=== PATIENT | female | born 1950 | race Caucasian/White ===

== ENCOUNTER → 2017-01-28 | Outpatient (CLI) | payer MEDICARE, OTHER ==
--- NOTE | 2017-01-28 08:31 | CT ---
EXAMINATION TYPE: CT abdomen pelvis w con DATE OF EXAM: 01/28/2017 7:44 AM HISTORY: low WBC, epigastric pain and bloating CT DLP: 1057.4mGycm Automated Exposure Control for Dose Reduction was Utilized. CONTRAST: CT scan of the abdomen and pelvis is performed with IV Contrast, patient injected with 100 mL of Omni paque 300. COMPARISON: None. FINDINGS: LUNG BASES: No significant abnormality is appreciated. LIVER/GB: No significant abnormality is appreciated. PANCREAS: No significant abnormality is seen. SPLEEN: There is trace perisplenic fluid or ascites noted along superior and left lateral margin. Spl een size is upper limits of normal measuring 12.6 cm on long axis on axial image 18. ADRENALS: No significant abnormality is seen. KIDNEYS: No significant abnormality is seen. BOWEL: The oral contrast reaches level of rectum. There is no suspicious small or large bowel dilatat ion. Some diverticula are seen in the sigmoid colon. There is mild to moderate diffuse wall thickenin g at this level identified. No significant surrounding inflammatory changes seen. UTERUS/ADNEXA: Uterus is surgically absent or markedly atrophic in appearance. Remnant right ovary is seen near axial image 66. Remnant left ovary is less well visualized. Some scattered pelvic phleboli ths are seen. LYMPH NODES: No greater than 1cm abdominal or pelvic lymph nodes are appreciated. OSSEOUS STRUCTURES: There is levoconvex scoliosis centered in the mid lumbar spine. There is multilev el disc space narrowing and vacuum disc phenomenon with relative sparing of L4-L5 level. There is fac et arthropathy lower lumbar levels. There is mild to moderate multilevel anterior and lateral spurrin g. OTHER: No significant additional abnormality is seen. IMPRESSION: 1. Perhaps a mild colitis involving the sigmoid colon with some diverticula present. Clinical correla tion advised, consider infectious or inflammatory etiologies. No bowel obstruction is noted. 2. Spleen is upper limits of normal in size to mildly enlarged with trace perisplenic ascites present .
== END ==
LOC: RADCTMAIN 07:13
PROVIDERS: ATTEND Family Medicine
DX: R18.8 Other ascites (principal); R16.1 Splenomegaly, not elsewhere classified
CPT/HCPCS: 74177; Q9967

== ENCOUNTER 2017-02-16 10:59 | Day surgery (SDC) | payer MEDICARE, OTHER ==
[2017-02-12 16:08] VITALS: BMI 28.4
[~2017-02-16 10:59] MED LIST: LACTATED RINGERS 1,000 ML IV SCH
[2017-02-16 11:11] VITALS: RESP 16; TEMP 97.7
[2017-02-16] MEDS ORDERED: LIDOCAINE 1% 20 ML VIAL (10MG/ML) FOR IV START INTRADERMA ONE (11:26)
[2017-02-16] MEDS ORDERED: PROPOFOL 10 MG/ML 20 ML VIAL IV ONE (11:50)
--- NOTE | 2017-02-16 12:30 | P.PCN ---
Date of Procedure: 02/16/17 Procedure(s) Performed: Procedure: Colonoscopy and biopsy. Preoperative diagnosis: Change in bowel habits and abnormal CT of the abdomen. Postoperative diagnosis: 1. Sigmoid diverticulosis. 2. Fwe isolated ulcerations in the sigmoid, possibly representing resolving colitis. 3. Exam of the colon and terminal ileum is, otherwise, normal. Preparation: HalfLytely prep. Sedation: Was provided by anesthesia. Brief clinical history: The patient is a 67-year-old female who is referred for this evaluation because of recent onset of change in bowel habits. Her baseline is one bowel movement every several days. She has recent change to soft and at times diarrheic movements. CT of the abdomen done in January 28 showed possible mild colitis and sigmoid diverticula and small amount of ascites around the spleen. Because of her persistent symptoms she is referred for this evaluation. Procedure: With the patient on her left lateral decubitus position and after informed consent and adequate sedation, the perianal area was inspected and it did not show any fissures or fistulas. There were no masses felt on digital rectal examination. The Olympus CFQ 160L video colonoscope was then inserted in the rectum in the usual fashion and advanced to the cecum. I intubated the ileocecal valve and examined the terminal ileum. Terminal ileum appeared healthy. The colon showed few diverticular orifices scattered in the sigmoid and there were few isolated healing ulcerations in the sigmoid, raising the possibility of nonspecific resolving colitis or infectious colitis. I obtained biopsies from the terminal ileum and randomly from the colon as well as a biopsy from one of the ulcerations in the sigmoid and I took a picture of that ulcer then the endoscope was withdrawn. The patient tolerated the procedure well. Plan: The patient was reassured. Will await biopsy results. She will follow- up with you as planned and further plans can be made based on her course.
[2017-02-16 12:56] VITALS: BP 125/71; PULSE 74
== END 2017-02-16 13:10 | disposition home or self-care (01) ==
LOC: ORWHC2ENDO 10:59
DX: K51.50 Left sided colitis without complications (principal); K57.30 Diverticulosis of large intestine without perforation or abscess without bleeding; Z90.710 Acquired absence of both cervix and uterus; Z88.0 Allergy status to penicillin; Z79.2 Long term (current) use of antibiotics; Z79.1 Long term (current) use of non-steroidal anti-inflammatories (NSAID)
CPT/HCPCS: 88305; 45380; J2704

== ENCOUNTER 2017-02-23 09:46 | Inpatient (IN) | payer MEDICARE, OTHER ==
[2017-02-23] MEDS ORDERED: SODIUM CHLORIDE 0.9% 500 ML IV STA (10:27)
[2017-02-23] MEDS ORDERED: ONDANSETRON 4 MG/2 ML VIAL IVP STA (10:27)
[2017-02-23] MEDS ORDERED: SODIUM CHLORIDE 0.9% 1,000 ML IV STA ×2 (10:27)
[2017-02-23] MEDS ORDERED: DICYCLOMINE 10 MG/ML 2 ML AMP IM STA (10:28)
--- NOTE | 2017-02-23 10:29 | ED ---
General Adult HPI - General Chief complaint: GI Bleed Stated complaint: blood in stool Time Seen by Provider: 02/23/17 10:27 Source: patient, family, RN notes reviewed, old records reviewed Mode of arrival: ambulatory - History of Present Illness Initial comments: This is a 67-year-old female ER for evaluation. Patient's is here today for evaluation of possible GI bleed, diarrhea, patient has had recent colonoscopy which did show diverticulosis diverticulitis colitis. Patient doing with outpatient diarrhea for a few days now. 2 weeks now. Is been on multiple different antibiotics. Patient's symptoms are showing blood in stool at this time. Mild weakness. No fevers - Related Data Home Medications Medication Instructions Recorded Confirmed L.acidoph,Paracasei, B.lactis 1 cap PO DAILY 02/12/17 02/23/17 [Probiotic] Naproxen Sodium [Aleve] 220 - 440 mg PO DAILY PRN 02/12/17 02/23/17 Allergies Allergy/AdvReac Type Severity Reaction Status Date / Time amoxicillin Allergy Rash/Hives Verified 02/23/17 10:47 Penicillins Allergy Unknown Verified 02/23/17 10:47 Review of Systems ROS Statement: Those systems with pertinent positive or pertinent negative responses have been documented in the HPI. ROS Other: All systems not noted in ROS Statement are negative. Past Medical History Additional Past Medical History / Comment(s): hx heart murmur, pt states was told bowels inflamed and fluid around gallbladder History of Any Multi-Drug Resistant Organisms: None Reported Past Surgical History: Hysterectomy, Orthopedic Surgery Additional Past Surgical History / Comment(s): rotator cuff rt x2, COLONOSCOPY FEB 16 2017 Past Anesthesia/Blood Transfusion Reactions: No Reported Reaction Past Psychological History: No Psychological Hx Reported Smoking Status: Former smoker Past Alcohol Use History: None Reported Additional Past Alcohol Use History / Comment(s): quit 30 years ago- states smoked off and on Past Drug Use History: None Reported - Past Family History Father Family Medical History: Cancer Additional Family Medical History / Comment(s): bladder Mother Family Medical History: Cancer General Exam General appearance: alert, in no apparent distress Head exam: Present: atraumatic, normocephalic, normal inspection Eye exam: Present: normal appearance, PERRL, EOMI. Absent: scleral icterus, conjunctival injection, periorbital swelling ENT exam: Present: normal exam, mucous membranes moist Neck exam: Present: normal inspection. Absent: tenderness, meningismus, lymphadenopathy Respiratory exam: Present: normal lung sounds bilaterally. Absent: respiratory distress, wheezes, rales, rhonchi, stridor Cardiovascular Exam: Present: regular rate, normal rhythm, normal heart sounds. Absent: systolic murmur, diastolic murmur, rubs, gallop, clicks GI/Abdominal exam: Present: soft, normal bowel sounds. Absent: distended, tenderness, guarding, rebound, rigid Extremities exam: Present: normal inspection, full ROM, normal capillary refill. Absent: tenderness, pedal edema, joint swelling, calf tenderness Back exam: Present: normal inspection Neurological exam: Present: alert, oriented X3, CN II-XII intact Psychiatric exam: Present: normal affect, normal mood Skin exam: Present: warm, dry, intact, normal color. Absent: rash Course Vital Signs 02/23/17 09:51 Temperature 98.3 F Pulse Rate 72 Respiratory 18 Rate Blood Pressure 123/62 O2 Sat by Pulse 96 Oximetry - Reevaluation(s) Reevaluation #1: 02/23/17 11:22 Prior colonoscopy results reviewed, patient still feeling weak EKG Findings - EKG Comments: EKG Findings:: EKG shows sinus rhythm rate of 75, NC 154, QRS 84, QTC 486 Medical Decision Making - Medical Decision Making 67 female year for. Patient treatment of colitis. Continue continuously persistent diarrhea. Patient will be admitted for continual GI evaluation and symptom control - Lab Data Result diagrams: 02/23/17 11:00 Lab Results 02/23/17 Range/Units 11:00 WBC 4.4 (3.8-10.6) k/uL RBC 4.49 (3.80-5.40) m/uL Hgb 13.7 (11.4-16.0) gm/dL Hct 41.0 (34.0-46.0) % MCV 91.3 (80.0-100.0) fL MCH 30.6 (25.0-35.0) pg MCHC 33.5 (31.0-37.0) g/dL RDW 14.3 (11.5-15.5) % Plt Count 120 L (150-450) k/uL Neutrophils % 65 % Lymphocytes % 19 % Monocytes % 8 % Eosinophils % 4 % Basophils % 1 % Neutrophils # 2.8 (1.3-7.7) k/uL Lymphocytes # 0.9 L (1.0-4.8) k/uL Monocytes # 0.3 (0-1.0) k/uL Eosinophils # 0.2 (0-0.7) k/uL Basophils # 0.0 (0-0.2) k/uL Disposition Clinical Impression: Gastrointestinal hemorrhage, Colitis, Diarrhea, Failure of outpatient treatment Disposition: ADMITTED IP TO THIS HOSP Condition: Fair
[2017-02-23] MEDS ORDERED: SODIUM CHLORIDE 0.9% 1,000 ML IV ONE (11:06)
[2017-02-23] MEDS ORDERED: ONDANSETRON 4 MG/2 ML VIAL IVP PRN (11:07)
[2017-02-23] MEDS ORDERED: MORPHINE SULFATE 4 MG/ML SYRINGE IVP PRN (11:07)
[2017-02-23 11:11] LABS: Basophils % (A) 1 %; CH 30.9; CHCM 34.1; Eosinophils # (A) 0.2 k/uL (0-0.7); Eosinophils % (A) 4 %; HDW 2.77; HGB 13.7 gm/dL (11.4-16.0); Luc # (Auto) 0.16; Luc % (Auto) 4; Lymphocytes # (A) 0.9 k/uL (1.0-4.8); Lymphocytes % (A) 19 %; MCH 30.6 pg (25.0-35.0); MCHC 33.5 g/dL (31.0-37.0); MCV 91.3 fL (80.0-100.0); Mean Platelet Volume 8.7; Monocytes # (A) 0.3 k/uL (0-1.0); Monocytes % (A) 8 %; Neutrophils # (A) 2.8 k/uL (1.3-7.7); Neutrophils % (A) 65 %; RBC 4.49 m/uL (3.80-5.40); RDW 14.3 % (11.5-15.5); WBC 4.4 k/uL (3.8-10.6); WBC (Perox) 4.49
[2017-02-23 11:26] LABS: ALT 34 U/L (9-52); AST 22 U/L (14-36); Alkaline Phosphatase 69 U/L (38-126); Anion Gap 9 mmol/L; Blood Urea Nitrogen 9 mg/dL (7-17); Carbon Dioxide 23 mmol/L (22-30); Chloride 110 mmol/L (98-107); Glucose 94 mg/dL (74-99); Magnesium 1.8 mg/dL (1.6-2.3); Non-African American GFR(MDRD) >60 (>60 ml/min/1.73 sqM); Phosphorous 3.6 mg/dL (2.5-4.5); Potassium 4.1 mmol/L (3.5-5.1); Sodium 142 mmol/L (137-145); Total Bilirubin 0.6 mg/dL (0.2-1.3); Total Protein 6.5 g/dL (6.3-8.2)
[2017-02-23 11:27] LABS: Prothrombin Time 9.8 sec (9.0-12.0)
[2017-02-23 11:36] LABS: Creatine Kinase 208 U/L (30-135)
[2017-02-23 11:47] LABS: Troponin I <0.012 ng/mL (0.000-0.034)
[2017-02-23 11:50] LABS: Creatine Kinase MB 5.9 ng/mL (0.0-2.4); Partial Thromboplastin Time 21.8 sec (22.0-30.0)
[2017-02-23] MEDS ORDERED: HYDROcodone/APAP 5-325MG 1 EACH TAB PO PRN (17:31)
[2017-02-23] MEDS ORDERED: TEMAZEPAM 15 MG CAP PO PRN (17:31)
[2017-02-23] MEDS ORDERED: HYDROmorphone 1 MG/ML 1 ML SYRINGE IVP PRN (17:31)
[2017-02-23] MEDS ORDERED: ALPRAZolam 0.25 MG TAB PO PRN (17:31)
[2017-02-23] MEDS ORDERED: LORazepam 0.5 MG TAB PO PRN (17:37)
[2017-02-23] MEDS: VANCOMYCIN ORAL SOLUTION 250 MG/5 ML BOTTLE PO SCH (18:27)
[2017-02-23] MEDS: CHERRY FLAVOR 60 ML BOTTLE PO PRN (18:27)
[2017-02-23 18:32] LABS: Appearance,Urine Clear (Clear); Bilirubin,Urine Negative (Negative); Glucose,Urine (UA) Negative (Negative); Ketones,Urine Negative (Negative); Leukocyte Esterase,Urine Negative (Negative); Nitrite,Urine Negative (Negative); PH, Urine 5.5 (5.0-8.0); Protein,Urine Negative (Negative); Specific Gravity,Urine 1.002 (1.001-1.035); UA Billing (MACRO vs. MICRO) CHEM; Urobilinogen,Urine <2.0 mg/dL (<2.0)
[2017-02-23] MEDS: LACTOBACILLUS ACIDOPH & BULGAR 1 EACH PACKET PO SCH (20:22)
[2017-02-23 23:28] VITALS: TEMP 97.4
[2017-02-24] MEDS: VANCOMYCIN ORAL SOLUTION 250 MG/5 ML BOTTLE PO SCH ×3 (00:05→11:04)
[2017-02-24] MEDS: CHERRY FLAVOR 60 ML BOTTLE PO PRN ×3 (00:05→11:04)
[2017-02-24] MEDS: LACTOBACILLUS ACIDOPH & BULGAR 1 EACH PACKET PO SCH (07:26)
[2017-02-24 07:48] VITALS: BP 107/61; PULSE 79; RESP 16
[2017-02-24] MEDS ORDERED: PANTOPRAZOLE 40 MG/10 ML VIAL IVP SCH (09:00)
[2017-02-24] MEDS ORDERED: ENOXAPARIN 40 MG/0.4 ML SYRINGE SQ SCH (09:00)
--- NOTE | 2017-02-24 09:13 | HP ---
DATE OF ADMISSION: CHIEF COMPLAINT: Abdominal pain, diarrhea. HISTORY OF PRESENT ILLNESS: This 67-year-old woman with a past history of gastroesophageal reflux disease, history of degenerative joint disease, history of orthopedic surgeries, history of colitis, history of diverticular disease, being followed by Dr. Eaton in the outpatient setting, not feeling well in the last few weeks. Initially the patient had multiple episodes of respiratory infection. Patient received antibiotics. Subsequently patient also had loose stools which turned into diarrhea and abdominal pain. The patient also had a colonoscopy done recently by Dr. Willis and the colonoscopy showed sigmoid diverticulosis, isolated ulceration to sigmoid indicating ulcerative colitis and as well as colitis and a CT scan of the abdomen and pelvis also done which showed mild colitis involving sigmoid colitis. Patient complaining of lower abdominal pain. The patient also had multiple episodes of diarrhea last night. Patient came to [facility] and admitted for evaluation and treatment. Clostridium difficile found to be positive. There is no history of fever, rigors. No history of headache, loss of consciousness, seizures. PAST MEDICAL HISTORY: History of hysterectomy, history of degenerative joint disease, orthopedic surgeries, history of heart murmur, colitis, diverticulitis, history of gastroesophageal reflux disease. Home medications are: 1. Naprosyn 220 and 240 mg daily p.r.n. 2. Probiotic 1 p.o. daily. ALLERGIES: AMOXICILLIN, PENICILLIN. FAMILY HISTORY: History of bladder cancers. SOCIAL HISTORY: Previous history of smoking. Occasional alcohol intake. Patient works at [employer]. REVIEW OF SYSTEMS: ENT: No diminishing hearing or diminished vision. CARDIOVASCULAR: No angina or palpitations. RESPIRATORY: No cough or hemoptysis. GI: As mentioned earlier. : No dysuria. NERVOUS SYSTEM: No numbness or weakness. ALLERGY/IMMUNOLOGY: No asthma or hayfever. MUSCULOSKELETAL: As mentioned earlier. HEMATOLOGY: No history of anemia. ENDOCRINE: No history of diabetes or hypothyroidism. CONSTITUTIONAL: As mentioned earlier. DERMATOLOGY: Negative. RHEUMATOLOGY: Negative. PSYCHIATRY: As mentioned earlier. PHYSICAL EXAMINATION: Patient is alert and oriented x3. Pulse 76, blood pressure 125/80, respirations 20, temperature 98.2, pulse ox 94% on room air. HEENT: Conjunctivae normal. NECK: No jugular venous distention. CARDIOVASCULAR: S1 and S2, muffled. RESPIRATORY: Breath sounds diminished at the bases. No rhonchi, no crackles. ABDOMEN: Soft, mild diffuse tenderness present. No guarding, no rigidity. No mass palpable. LEGS: No edema, no swelling. NERVOUS SYSTEM: Higher function as mentioned. Moves all four limbs. No focal motor deficits. LYMPHATIC: No lymphadenopathy in the neck, axillae or groin. SKIN: No ulcer, rash or bleeding. LABS: WBC 4.5, hemoglobin 13.7, platelets 120 and APTT 21.8, chloride is 110, CK-MB is 5.9. Creatinine is 208. Clostridium difficile is positive. ASSESSMENT: 1. Acute colitis with Clostridium difficile colitis with severe abdominal pain and failure of outpatient treatment. 2. History of recent colonoscopy showing colonic ulcerations. 3. Thrombocytopenia of undetermined etiology. 4. Increased random blood sugar. 5. History of respiratory infection. 6. History of gastroesophageal reflux disease. 7. History of for diverticular disease. 8. History of remote history nicotine dependence. 9. History of degenerative joint disease. RECOMMENDATIONS AND DISCUSSION: In this 67-year woman who presented with multiple complex medical issues, we will monitor the patient closely. Continue the current medications and symptomatic treatment. Will initiate vancomycin and start clear liquids, lactose free and will also order Lactinex. Continue to monitor. Otherwise gastroenterology Dr. Willis will be consulted. The pathological biopsy report of the ileum showed no changes. The sigmoid colon biopsy showed nonspecific acute colitis and features consistent with an ulcer. See orders for further details. Guarded prognosis. Further recommendations to follow.
[2017-02-24 09:58] LABS: Basophils % (A) 0 %; CH 30.5; CHCM 33.1; Eosinophils # (A) 0.2 k/uL (0-0.7); Eosinophils % (A) 6 %; HCT 37.3 % (34.0-46.0); HDW 2.84; HGB 12.2 gm/dL (11.4-16.0); Luc # (Auto) 0.12; Luc % (Auto) 4; Lymphocytes # (A) 0.8 k/uL (1.0-4.8); Lymphocytes % (A) 26 %; MCH 30.3 pg (25.0-35.0); MCHC 32.8 g/dL (31.0-37.0); MCV 92.5 fL (80.0-100.0); Mean Platelet Volume 8.6; Monocytes # (A) 0.3 k/uL (0-1.0); Monocytes % (A) 10 %; Neutrophils # (A) 1.7 k/uL (1.3-7.7); Neutrophils % (A) 54 %; RBC 4.04 m/uL (3.80-5.40); RDW 14.2 % (11.5-15.5); WBC 3.2 k/uL (3.8-10.6); WBC (Perox) 3.53
--- NOTE | 2017-02-24 10:07 | P.CONS ---
History of Present Illness - Reason for Consult Consult date: 02/24/17 Colitis Requesting physician: Temi Cordoba - History of Present Illness 67-year-old female PMH GERD, diverticulosis presents with rectal bleeding. She underwent colonoscopy for evaluation of change in bowel habits and diarrhea on 02/16/2017 with findings of sigmoid diverticulosis and a few isolated ulcerations in the sigmoid possibly representing resolving colitis. Pathology reported no histologic changes in the terminal ileum. Sigmoid colon biopsy nonspecific acute colitis with features consistent with ulcer. Patient was receiving outpatient antibiotic therapy prior to colonoscopy for abdominal discomfort and diarrhea. Presented to the hospital with reports of lower abdominal discomfort and persistent diarrhea over the weekend turning blood- tinged on Thursday. Patient felt dehydrated. Clostridium difficile toxin positive. Receiving oral vancomycin. Presently feels better. No diarrhea 18 hours. White count 4.4. Hemoglobin 13.7. INR 1.0. BUN 9 creatinine 0.7. Afebrile. Review of Systems Constitutional: Denies fever, chills, sweats, weight gain, or loss. HEENT: Negative for migraines, blurred vision or loss, earaches, drainage, tinnitus, oral mucosal lesions, dysphagia, or odynophagia. CARDIAC: Negative for chest pain, arrhythmias, or palpitation. RESPIRATORY: Negative for shortness of breath, hemoptysis, cough, or sputum production. GI: See HPI for pertinent findings. : Negative for hematuria, urgency, frequency, polyuria, or dysuria. GYNc: Denies possibility of . Negative vaginal discharge. MUSCULOSKELETAL: Negative for muscle aches, swelling, arthritis, and arthralgias. NEUROLOGIC: Negative for stroke or TIA. ENDOCRINE: Negative for thyroid problems. SKIN: Negative for rash or itching. PSYCHIATRIC: Negative history for depression and anxiety All systems: negative (See HPI) Past Medical History Past Medical History: GERD/Reflux Additional Past Medical History / Comment(s): hx heart murmur,colitis, diverticular dx. History of Any Multi-Drug Resistant Organisms: None Reported Past Surgical History: Hysterectomy, Orthopedic Surgery Additional Past Surgical History / Comment(s): rotator cuff rt x2, COLONOSCOPY FEBRUARY 16, 2017 Past Anesthesia/Blood Transfusion Reactions: No Reported Reaction Past Psychological History: No Psychological Hx Reported Additional Psychological History / Comment(s): Pt resides with her spouse. She is independent. Smoking Status: Former smoker Past Alcohol Use History: None Reported Additional Past Alcohol Use History / Comment(s): quit 30 years ago- states smoked off and on Past Drug Use History: None Reported - Past Family History Father Family Medical History: Cancer Additional Family Medical History / Comment(s): Bladder cancer. Father in his 80's. Mother Family Medical History: Cancer Additional Family Medical History / Comment(s): Mother is living and is in her early 80's. Pt does not know type of cancer her mother had. Medications and Allergies Home Medications Medication Instructions Recorded Confirmed Type L.acidoph,Paracasei, B.lactis 1 cap PO DAILY 02/12/17 02/23/17 History [Probiotic] Naproxen Sodium [Aleve] 220 - 440 mg PO DAILY PRN 02/12/17 02/23/17 History Allergies Allergy/AdvReac Type Severity Reaction Status Date / Time amoxicillin Allergy Rash/Hives Verified 02/23/17 10:47 Penicillins Allergy Unknown Verified 02/23/17 10:47 Physical Exam Vitals: Vital Signs Temp Pulse Pulse Resp BP BP Pulse Ox 02/24/17 07:00 97.4 F L 79 16 107/61 92 L 02/23/17 23:00 97.4 F L 86 18 114/63 93 L 02/23/17 15:00 98.2 F 76 20 125/80 95 02/23/17 13:19 98.3 F 80 18 135/62 93 L 02/23/17 09:51 98.3 F 72 18 123/62 96 Intake and Output 02/23/17 02/24/17 02/24/17 22:59 06:59 14:59 Other: Voiding Method Toilet # Voids 1 2 General appearance: The patient is alert, oriented, in no acute distress. HET: Head is normocephalic and atraumatic. Pupils are equal and reactive. Oropharynx is clear without lesions. Neck: Supple without lymphadenopathy. Trachea midline. Heart: S1 S2. Regular rate and rhythm. Lungs: No crackles or wheezes are heard. Abdomen: Soft, nontender, nondistended with bowel sounds. No peritoneal signs. No palpable organomegaly or masses. Extremities: Normal skin color and turgor. No cyanosis, rash, ulceration, clubbing, or edema. Radial and pedal pulses are 2/4 bilaterally. Neurological: No focal deficits. Strength and sensation are grossly intact. Results CBC & Chem 7: 02/24/17 09:28 02/23/17 11:00 Labs: Abnormal Lab Results - Last 24 Hours (Table) 02/23/17 02/23/17 02/23/17 Range/Units 11:00 11:00 11:00 Plt Count 120 L (150-450) k/uL Lymphocytes # 0.9 L (1.0-4.8) k/uL APTT (22.0-30.0) sec Chloride 110 H (98-107) mmol/L Total Creatine Kinase 208 H (30-135) U/L CK-MB (CK-2) 5.9 H* (0.0-2.4) ng/mL C. difficile (EIA) Intrp (Negative) 02/23/17 02/23/17 Range/Units 11:00 11:06 Plt Count (150-450) k/uL Lymphocytes # (1.0-4.8) k/uL APTT 21.8 L (22.0-30.0) sec Chloride (98-107) mmol/L Total Creatine Kinase (30-135) U/L CK-MB (CK-2) (0.0-2.4) ng/mL C. difficile (EIA) Intrp Positive A (Negative) Assessment and Plan (1) Clostridium difficile colitis Narrative/Plan: 67-year-old female presents with persistent diarrhea and rectal bleeding abdominal discomfort secondary to Clostridium difficile colitis status post recent colonoscopy with findings of sigmoid diverticulosis and sigmoid ulcer resolving colitis with pathology consistent with nonspecific colitis. Colonoscopy is felt not to be a consequence of her Clostridium difficile colitis as patient was symptomatic prior to colonoscopy with diarrhea and received outpatient antibiotics. Status: Acute (2) Left sided colitis Status: Acute (3) Status post colonoscopy Status: Acute Plan: 1. Oral vancomycin. CRP today and in a.m. Discharge per medicine. Supportive measures. 2. Light diet as tolerated with yogurt. Monitor CBC. 3. Will follow closely with you. Thank you for this kind referral and the opportunity to participate in the care of your patient. This consultation was discussed with Dr. Willis. The impression and plan of care have been directed as dictated.
[2017-02-24 10:16] LABS: Anion Gap 6 mmol/L; Blood Urea Nitrogen 5 mg/dL (7-17); Carbon Dioxide 26 mmol/L (22-30); Chloride 110 mmol/L (98-107); Glucose 95 mg/dL (74-99); Magnesium 1.8 mg/dL (1.6-2.3); Non-African American GFR(MDRD) >60 (>60 ml/min/1.73 sqM); Potassium 4.1 mmol/L (3.5-5.1); Sodium 142 mmol/L (137-145)
--- NOTE | 2017-02-25 12:35 | DS ---
DATE OF ADMISSION: 02/23/2017 DATE OF DISCHARGE: 02/24/2017 FINAL DIAGNOSES: 1. Acute Clostridium difficile colitis with severe abdominal pain and failure of outpatient treatment with recent colonoscopy showing colonic calcification. 2. Thrombocytopenia of undetermined etiology. 3. Increased random blood sugar. 4. History of respiratory infection. 5. History of gastroesophageal reflux disease. 6. History of diverticulitis. 7. Remote history of nicotine dependence. 8. History of degenerative joint disease. 9. FULL CODE. DISCHARGE DISPOSITION: The patient will be discharged in a stable condition with guarded prognosis. Gastroenterology cleared the patient for discharge. HISTORY OF PRESENT ILLNESS: This is a 67-year-old woman with the past medical history of multiple medical problems, being followed by Dr. Tee in the outpatient setting, admitted with continued diarrhea. The patient also had recent colonoscopy and other work-up also. For C. difficile colitis patient was given vancomycin and improved significantly. On exam, vitals are stable. CARDIOVASCULAR SYSTEM: S1, S2, muffled. ABDOMEN: Soft. NERVOUS SYSTEM: No focal deficits. DISCHARGE ADVICE: 1. Diet is cardiac. 2. Activity limited until followup. 3. Follow up with Dr. Tee in 2 to 3 days. 4. Follow up with Dr. Willis as advised. Medications will be as follows: 1. Lactinex 1 p.o. daily. 2. Protonix 40 mg daily. 3. Vancomycin 250 mg q.h.s. for 10 day. 4. Diet is soft, low residue, lactose-free diet. Once again, patient will be discharged in a stable condition with a guarded prognosis.
== END 2017-02-24 14:21 | disposition home or self-care (01) | DRG 372 ==
LOC: EC 09:46 → 5MS5E 11:06 → 4MS4W 12:47
PROVIDERS: ADMIT Hospitalist; ATTEND Hospitalist
DX: A04.7 Enterocolitis due to Clostridium difficile (principal); K51.50 Left sided colitis without complications; D69.6 Thrombocytopenia, unspecified; K51.90 Ulcerative colitis, unspecified, without complications; E86.0 Dehydration; K21.9 Gastro-esophageal reflux disease without esophagitis; K57.30 Diverticulosis of large intestine without perforation or abscess without bleeding; Z80.52 Family history of malignant neoplasm of bladder; Z87.891 Personal history of nicotine dependence; Z88.1 Allergy status to other antibiotic agents; Z88.0 Allergy status to penicillin
CPT/HCPCS: 36415; 80048; 80053; 81003; 82550; 82553; 83735; 84100; 84484; 85025; 85610; 85730; 86140; 86850; 86900; 86901; 87324; 93005; 96361; 96372; 96374; 99285

== ENCOUNTER → 2017-05-01 | Outpatient (CLI) | payer MEDICARE, OTHER ==
--- NOTE | 2017-05-01 09:32 | US ---
EXAMINATION TYPE: US abdomen complete DATE OF EXAM: 05/01/2017 COMPARISON: NONE CLINICAL HISTORY: Left Upper quadrant Pain R10.12. Known larger spleen with general abd pain EXAM MEASUREMENTS: Liver Length: 17.2 cm Gallbladder Wall: 0.2 cm CBD: 0.5 cm Spleen: 12.9 cm Right Kidney: 9.9 x 4.6 x 4.1 cm Left Kidney: 9.5 x 3.7 x 4.3 cm intercostal views used due to subcostal bowel gas Pancreas: wnl Liver: Slightly enlarged with mild heterogeneity compatible some mild fatty infiltration. Gallbladder: wnl Evidence for sonographic Holloway's sign: no CBD: wnl Spleen: upper limits of normal for size, scant amount of fluid seen at medial superior portion Right Kidney: wnl Left Kidney: wnl Upper IVC: wnl Abd Aorta: wnl IMPRESSION: 1. Mild hepatomegaly with mild fatty infiltration. 2. Spleen is at the upper limits of normal for size with some minimal fluid adjacent 3. Abdomen ultrasound is otherwise unremarkable.
== END | disposition home or self-care (01) ==
LOC: RADUSWWP 08:37
PROVIDERS: ATTEND Internal Medicine
DX: K76.0 Fatty (change of) liver, not elsewhere classified (principal)
CPT/HCPCS: 76700

== ENCOUNTER → 2018-02-08 | Outpatient (CLI) | payer MEDICARE, OTHER ==
--- NOTE | 2018-02-08 14:09 | MR ---
EXAMINATION TYPE: MR knee LT wo con DATE OF EXAM: 02/08/2018 COMPARISON: NONE HISTORY: Left knee pain TECHNIQUE: Multiplanar, multisequence images of the knee is performed without IV contrast. FINDINGS: MEDIAL MENISCUS: Anterior and posterior horns are intact without tear. LATERAL MENISCUS: Anterior and posterior horns are intact without tear. CRUCIATE LIGAMENTS: The anterior and posterior cruciate ligaments are intact and unremarkable. COLLATERAL LIGAMENTS: The medial collateral ligament and lateral collateral ligament complex are inta ct and unremarkable. EXTENSOR MECHANISM: Visualized quadriceps and patellar tendons are intact. EFFUSION: No significant suprapatellar joint effusion. POPLITEAL CYST: No popliteal/foster cyst. TRICOMPARTMENT SPACES: Moderate joint space loss patellofemoral compartment is seen. Patella is high riding, Insall-Salvati ratio is measured just under 1.5 on sagittal image 16. There is mild joint spa ce loss and spurring lateral medial tibiofemoral compartments CARTILAGE: There is chondromalacia patella with thinning of articular cartilage along posterior castro lar pole most prominent inferiorly where there is some areas of near full-thickness loss identified. BONE MARROW SIGNAL: Some vague areas of increased T2 signal in the posterior patellar pole are identi fied. OTHER: No additional significant abnormality is appreciated. IMPRESSION: 1. No meniscal or ligamentous tears are seen. 2. 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
== END | disposition home or self-care (01) ==
LOC: RADMRIMAIN 13:08
PROVIDERS: ATTEND Orthopaedic Surgery
DX: M22.42 Chondromalacia patellae, left knee (principal)

== ENCOUNTER → 2018-02-08 | Outpatient (CLI) | payer MEDICARE, OTHER ==
--- NOTE | 2018-02-09 07:13 | MM ---
Reason for exam: screening (asymptomatic). Last mammogram was performed 9 years and 10 months ago. History: Patient is postmenopausal. Taking estrogen for 12 years. Physical Findings: A clinical breast exam by your physician is recommended on an annual basis and results should be correlated with mammographic findings. MG 3D Screening Mammo W/Cad Bilateral CC and MLO view(s) were taken. Prior study comparison: April 05, 2008, bilateral digital screening mammogram. September 22, 2005, bilateral screening mammogram w/CAD. Finding: There are typically benign round calcifications in the anterior position of the right breast. Asymmetric breast tissue left central position, stable since 2007. There is no discrete abnormality. ASSESSMENT: Benign, BI-RAD 2 RECOMMENDATION: Routine screening mammogram of both breasts in 1 year.
== END | disposition home or self-care (01) ==
LOC: RADMAMWWP 09:45
PROVIDERS: ATTEND Internal Medicine
DX: Z12.31 Encounter for screening mammogram for malignant neoplasm of breast (principal)
CPT/HCPCS: 77063; 77067

== ENCOUNTER → 2018-03-02 | Outpatient (CLI) | payer MEDICARE, OTHER | END | disposition home or self-care (01) | LOC: LABPAT 10:15 | PROVIDERS: ATTEND Orthopaedic Surgery | DX: Z01.818 Encounter for other preprocedural examination (principal); M23.92 Unspecified internal derangement of left knee | CPT/HCPCS: 93005 ==

== ENCOUNTER → 2019-02-07 | Outpatient (CLI) | payer MEDICARE, OTHER ==
--- NOTE | 2019-02-07 16:20 | US ---
EXAMINATION TYPE: US pelvis complete transvag DATE OF EXAM: 02/07/2019 COMPARISON: None CLINICAL HISTORY: 69-year-old female R10.2 PELVIC PAIN. Bloating and pelvic pain x 2 years. Hysterect nabila. Patient claims she has one ovary, unsure which ovary. TECHNIQUE: Transabdominal sonographic images of the pelvis were acquired. Transvaginal sonographic images were medically necessary to better assess the following anatomy: Ovary Date of LMP: Pt unsure. FINDINGS: 1. Uterus: Removed 3. Right Ovary: Not visualized 4. Left Ovary: Not visualized 5. Bilateral Adnexa: Bowel obscures adnexas. 6. Posterior cul-de-sac: appears wnl IMPRESSION: Status post hysterectomy. Neither ovary could be visualized. Prominent bowel content obscures most of the adnexal regions. No evident pelvic free fluid.
== END ==
LOC: RADUSWWP 12:07
PROVIDERS: ATTEND Internal Medicine
DX: R10.2 Pelvic and perineal pain (principal); Z90.710 Acquired absence of both cervix and uterus
CPT/HCPCS: 76830; 76856

== ENCOUNTER → 2021-01-31 | Outpatient (CLI) | payer MEDICARE, OTHER ==
[2021-01-31 09:57] LABS: Basophils % (A) 1 %; Eosinophils # (A) 0.2 k/uL (0-0.7); Eosinophils % (A) 6 %; HCT 41.8 % (34.0-46.0); HGB 14.4 gm/dL (11.4-16.0); Lymphocytes # (A) 1.1 k/uL (1.0-4.8); Lymphocytes % (A) 30 %; MCH 31.8 pg (25.0-35.0); MCHC 34.4 g/dL (31.0-37.0); MCV 92.6 fL (80.0-100.0); Mean Platelet Volume 8.3; Monocytes # (A) 0.3 k/uL (0-1.0); Monocytes % (A) 9 %; Neutrophils # (A) 1.9 k/uL (1.3-7.7); Neutrophils % (A) 53 %; Platelet Count 168 k/uL (150-450); RBC 4.52 m/uL (3.80-5.40); RDW 12.8 % (11.5-15.5); WBC 3.6 k/uL (3.8-10.6)
[2021-01-31 10:10] LABS: Potassium 4.7 mmol/L (3.5-5.1)
== END | disposition home or self-care (01) ==
LOC: LABPAT 09:16
PROVIDERS: ATTEND Orthopaedic Surgery
DX: M23.91 Unspecified internal derangement of right knee (principal)
CPT/HCPCS: 36415; 80051; 85025

== ENCOUNTER → 2021-02-05 | Outpatient (CLI) | payer MEDICARE, OTHER | END | disposition home or self-care (01) | LOC: LABPAT 07:47 | PROVIDERS: ATTEND Orthopaedic Surgery | DX: Z01.818 Encounter for other preprocedural examination (principal); M23.91 Unspecified internal derangement of right knee | CPT/HCPCS: 93005 ==

== ENCOUNTER 2021-02-07 07:56 | Day surgery (SDC) | payer MEDICARE, OTHER ==
[2021-02-04 16:09] VITALS: BMI 28.8
--- NOTE | 2021-02-06 20:17 | HP ---
HISTORY AND PHYSICAL DATE OF SURGERY: 02/07/2021 Zina Olson is a 71-year-old patient seen with progressive right knee pain. We discussed treatment options. She elected to proceed with arthroscopy. Consent was obtained. Cardiac clearance was obtained. PAST MEDICAL HISTORY: Atrial fibrillation, hyperlipidemia, hypertension. PAST SURGICAL HISTORY: Shoulder arthroscopy. DAILY MEDICATIONS: Atorvastatin, carvedilol, fluoxetine, lisinopril. ALLERGIES: PENICILLIN. SOCIAL HISTORY: She denies current tobacco use. PHYSICAL EVALUATION OF THE RIGHT KNEE: Her range of motion is zero to 120. Mild effusion. Tenderness along the medial joint line with a positive medial Laya's. Ligaments are stable. Hip rotation is without pain. Distal neurovascular exam is intact. RADIOGRAPHS: Radiographs of the right knee revealed mild to moderate osteoarthritic changes. IMPRESSION: 1. Internal derangement of right knee with meniscal tear versus osteochondral tear. 2. Hypertension. 3. Hyperlipidemia. 4. Atrial fibrillation. PLAN: Right knee arthroscopy with chondroplasty and debridement. MMODL / IJN: [id number] /
[~2021-02-07 07:56] MED LIST changes: +DEXAMETHASONE SOD PHOSPHATE 4 MG/ML 1 ML VIAL IV ONE; +HYDROmorphone 0.5 MG/0.5 ML SYRINGE IVP PRN; +ONDANSETRON 4 MG/2 ML VIAL IVP ONE
[2021-02-07 08:15] VITALS: RESP 16
[2021-02-07] MEDS ORDERED: LIDOCAINE 1% (10MG/ML) FOR IV START INTRADERMA ONE (08:21)
[2021-02-07] MEDS ORDERED: BUPIVACAINE (PF) 0.25% 30 ML VIAL SQ ONE ×2 (09:24→10:13)
[2021-02-07] MEDS ORDERED: ROCURONIUM 10 MG/ML (5 ML VIAL) IV ONE (09:40)
[2021-02-07] MEDS ORDERED: GLYCOPYRROLATE 0.2 MG/ML 2 ML VIAL ONE (09:40)
[2021-02-07] MEDS ORDERED: NEOSTIGMINE 1 MG/ML 10 ML VIAL ONE (09:40)
[2021-02-07] MEDS ORDERED: fentaNYL (PF) 50 MCG/ML 2 ML AMP ONE (09:40)
[2021-02-07] MEDS ORDERED: PROPOFOL 10 MG/ML 20 ML VIAL IV ONE (09:40)
[2021-02-07] MEDS ORDERED: MIDAZOLAM 2 MG/2 ML VIAL ONE (09:40)
[2021-02-07] MEDS ORDERED: SUCCINYLCHOLINE CHLORIDE 100 MG/5 ML SYR IV ONE (09:40)
[2021-02-07] MEDS ORDERED: ePHEDrine SULFATE/0.9% NACL/PF 50 MG/5 ML SYRINGE IV ONE (09:40)
[2021-02-07] MEDS ORDERED: LIDOCAINE 1% INJ 10MG/ML (20 ML MDV) ONE (09:40)
[2021-02-07] MEDS ORDERED: PHENYLEPHRINE-0.9% NACL SYG 1,000 MCG/10 ML SYRINGE ONE (09:40)
[2021-02-07] MEDS ORDERED: LACTATED RINGERS 1,000 ML IV ONE (10:13)
[2021-02-07 10:33] VITALS: TEMP 96.8
--- NOTE | 2021-02-07 10:33 | P.OP ---
Date of Procedure: 02/07/21 Preoperative Diagnosis: Internal derangement right knee Postoperative Diagnosis: 1. Tear medial meniscus right knee 2. Grade 4 chondromalacia medial femoral condyle 3. 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 Reactive synovitis medial, lateral and patellar compartments right knee Procedure(s) Performed: 1. Arthroscopic partial medial meniscectomy right knee 2. Arthroscopic chondroplasty medial femoral condyle right knee 3. Arthroscopic microfracture medial femoral condyle right knee 4. Arthroscopic chondroplasty patella right knee 5. Arthroscopic partial synovectomy medial, lateral and suprapatellar compartments right knee Anesthesia: JUDITHA, local Surgeon: Prasanna Carbone Estimated Blood Loss (ml): 7 Pathology: none sent Condition: stable Disposition: PACU Indications for Procedure: 71-year-old patient seen with progressive right knee pain. After treatment options were discussed with her, she elected to proceed with arthroscopy. Operative Findings: See description of procedure Description of Procedure: Patient was taken to the operative suite. Patient underwent a general anesthetic by the department of anesthesia. Patient was given preoperative antibiotics. The right lower extremity was placed in a well-padded arthroscopic leg boykin. The right leg was prepped and draped in the normal sterile orthopedic fashion. A lateral parapatellar and suprapatellar incision was made. Trochars were inserted. Arthroscopy was initiated. Suprapatellar pouch revealed diffuse thick reactive synovitis. The patellofemoral joint appeared to articulate congruently. There was grade 3/4 chondromalacia of the central portion of the patella with some osteochondral tears present. The scope was guided into the medial gutter. No loose body or plica were identified. The scope was then guided into the medial compartment. A medial parapatellar incision was made. Trocar inserted followed by probe. There was a radial tear posterior horn medial meniscus. There was an area of grade 4 chondromalacia along the lateral aspect of the medial femoral condyle with an area of 1 cm x 2 cm bony exposure. There was some osteochondral flap tears around this area of grade 4 chondromalacia. There was some reactive synovitis anteriorly. I performed a partial medial meniscectomy getting down to stable meniscal tissue. I performed a chondroplasty of the medial femoral condyle getting down to stable osteochondral tissue. I performed a partial synovectomy decompressing the thick reactive synovitis anteriorly. I now introduced a microfracture awl and performed a microfracture to that exposed bone medial femoral condyle penetrating the bone with resultant bleeding at the microfracture site. The residual meniscus was probed and found to be stable. The residual osteochondral surface of the medial femoral condyle was stable. There was good decompression of the synovitis. Scope and probe were then guided into the intercondylar notch. Cruciates were identified, probed and found to be stable. The scope and probe were then guided into lateral compartment. Meniscus was stable. Lateral femoral condyle revealed some grade 1/2 chondromalacia with no tears present. There was some reactive synovitis anteriorly. I introduced a motorized shaver and performed a partial synovectomy decompressing that area of reactive thick synovitis. Shaver was removed. There was good decompression of the synovitis. The scope was in guided back into the suprapatellar compartment. Used a motorized shaver into the super patellar compartment. I debrided some piecemeal fragments of meniscus I encountered. I performed a chondroplasty of the patella getting down to stable osteochondral tissue. I performed a partial synovectomy decompressing the thick reactive synovitis. The shaver was removed. The residual osteochondral surface of the patella was stable. There was good decompression of the synovitis. Instruments were now removed from the joint. The joint was infiltrated with .25% Marcaine. Steri-Strips were applied to the portal sites. Sterile dressings were applied. The patient was placed into a MERLIN hose. No tourniquet was utilized. The patient was awakened, transferred to a bed and taken to recovery stable satisfactory condition.
[2021-02-07] MEDS ORDERED: HYDROcodone/APAP 7.5-325MG 1 EACH TAB ONE (11:25)
[2021-02-07] MEDS ORDERED: HYDROcodone/APAP 7.5-325MG 1 EACH TAB PO ONE (11:26)
[2021-02-07 11:34] VITALS: BP 145/98; PULSE 64
== END 2021-02-07 12:15 | disposition home or self-care (01) ==
LOC: OR 07:56
PROVIDERS: ATTEND Orthopaedic Surgery
DX: M23.203 Derangement of unspecified medial meniscus due to old tear or injury, right knee (principal); M65.861 Other synovitis and tenosynovitis, right lower leg; M22.41 Chondromalacia patellae, right knee; Z82.49 Family history of ischemic heart disease and other diseases of the circulatory system; I42.8 Other cardiomyopathies; E78.5 Hyperlipidemia, unspecified; F32.9 Major depressive disorder, single episode, unspecified; K21.9 Gastro-esophageal reflux disease without esophagitis; I10 Essential (primary) hypertension; I49.3 Ventricular premature depolarization; I49.1 Atrial premature depolarization; I48.91 Unspecified atrial fibrillation; Z72.0 Tobacco use; Z98.890 Other specified postprocedural states; Z79.899 Other long term (current) drug therapy; Z79.82 Long term (current) use of aspirin; Z88.0 Allergy status to penicillin
CPT/HCPCS: 29881; 29879; 29876; J2250; J1100; J2710; J0690; J2405; J2001; J3010; J2370; J0330; J2704

== ENCOUNTER → 2022-03-05 | Outpatient (CLI) | payer MEDICARE, OTHER ==
--- NOTE | 2022-03-06 02:09 | MR ---
EXAMINATION TYPE: MR shoulder RT wo con DATE OF EXAM: 03/05/2022 COMPARISON: None HISTORY: Right shoulder pain for 10 years, history of surgery. Multiplanar multiecho imaging of the right shoulder without contrast. There is narrowing of the glenohumeral joint space. There is spurring of the humeral head and spurrin g of the glenoid keli. The subscapularis tendon is intact. There is a mild shoulder joint effusion. Biceps tendon is intact. There is fluid around the biceps tendon. There is subacromial joint space na rrowing. There is full-thickness tear of the anterior aspect of the supraspinatus tendon at the attac hment on the greater tuberosity of the humerus. There is mild spurring at the AC joint and subacromia l impingement on the supraspinatus tendon. There are degenerative cysts in the humeral head. IMPRESSION: Degenerative cyst formation in the humeral head. Rotator cuff full-thickness tear on the anterior asp ect of the supraspinatus tendon. Subacromial impingement. Osteoarthritis in the glenohumeral joint.
== END | disposition home or self-care (01) ==
LOC: RADMRIMAIN 19:18
PROVIDERS: ATTEND Orthopaedic Surgery
DX: M19.011 Primary osteoarthritis, right shoulder (principal); M75.111 Incomplete rotator cuff tear or rupture of right shoulder, not specified as traumatic; M85.611 Other cyst of bone, right shoulder; M25.811 Other specified joint disorders, right shoulder

== ENCOUNTER → 2022-06-13 | Outpatient (CLI) | payer MEDICARE, OTHER ==
--- NOTE | 2022-06-17 08:56 | MM ---
Reason for Exam: Screening (asymptomatic). Last mammogram was performed 4 year(s) and 5 month(s) ago. Patient History: Menarche at age 14. First Full-Term at age 18. Hysterectomy at age 32. Postmenopausal. Patient used Estrogen for 12 years. Risk Values: Jacque 5 year model risk: 1.2%. NCI Lifetime model risk: 3.7%. Prior Study Comparison: 09/22/2005 Bilateral Screening Mammogram, [facility]. 04/05/2008 Bilateral Screening Mammogram, [facility]. 02/08/2018 Bilateral Screening Mammogram, [facility]. Tissue Density: There are scattered fibroglandular densities. Findings: Analyzed By CAD. No suspicious groups of microcalcifications, spiculated or lobular masses, architectural distortion or other secondary signs of malignancy are mammographically apparent. Overall Assessment: Benign, BI-RAD 2 Management: Screening Mammogram of both breasts in 1 year. A negative mammogram report should not preclude additional follow up of suspicious palpable abnormalities. Patient should continue monthly self breast exam. A clinical breast exam by your physician is recommended on an annual basis and results should be correlated with mammographic findings. Electronically signed and approved by: Lester Earl D.O. Radiologis
== END | disposition home or self-care (01) ==
LOC: RADMAMWWP 07:57
PROVIDERS: ATTEND Family Medicine
DX: Z12.31 Encounter for screening mammogram for malignant neoplasm of breast (principal); Z78.0 Asymptomatic menopausal state
CPT/HCPCS: 77063; 77067

== ENCOUNTER → 2022-07-03 | Outpatient (CLI) | payer MEDICARE, OTHER ==
--- NOTE | 2022-07-03 10:37 | XR ---
EXAMINATION TYPE: XR chest 2V DATE OF EXAM: 07/03/2022 10:04 AM COMPARISON: None TECHNIQUE: XR chest 2V Frontal and lateral views of the chest. CLINICAL INDICATION:Female, 72 years old with history of R09.89 sign symptoms of respiratory system; FINDINGS: Lungs/Pleura: There is no evidence of pleural effusion, focal consolidation, or pneumothorax. Pulmonary vascularity: Unremarkable. Heart/mediastinum: Cardiomediastinal silhouette is unremarkable. Musculoskeletal: No acute osseous pathology. IMPRESSION: No acute cardiopulmonary disease/process.
== END | disposition home or self-care (01) ==
LOC: RADXRMAIN 09:41
PROVIDERS: ATTEND Family Medicine
DX: R09.89 Other specified symptoms and signs involving the circulatory and respiratory systems (principal)
CPT/HCPCS: 71046

== ENCOUNTER 2022-07-16 07:37 | Day surgery (SDC) | payer MEDICARE, OTHER ==
--- NOTE | 2022-07-16 04:34 | HP ---
HISTORY AND PHYSICAL DATE OF SURGERY: 07/16/2022. HISTORY OF PRESENT ILLNESS: Zian Olson is a 72-year-old patient seen with progressive right shoulder pain. We discussed options for treatment. She elected to proceed for right shoulder arthroscopy. Consent regarding the procedure was obtained. Medical clearance was provided. PAST MEDICAL HISTORY: Hypertension, hyperlipidemia, atrial fibrillation. PAST SURGICAL HISTORY: Left shoulder arthroscopy, right knee arthroscopy. DAILY MEDICATIONS: 1. Carvedilol. 2. Lisinopril. 3. Fluoxetine. ALLERGIES: Penicillin. SOCIAL HISTORY: She denies tobacco use. PHYSICAL EVALUATION OF THE RIGHT SHOULDER: Flexion is 150 degrees, abduction 130 degrees, external rotation 20 degrees, weakness, tenderness along the anterolateral acromion and rotator cuff insertion site. Impingement is positive at 100 degrees. Drop-arm sign is positive. Distal neurovascular exam is intact. RADIOGRAPHS: Right shoulder radiographs revealed a cystic tuberosity as well as type 2 acromion. MRI of right shoulder revealed impingement with rotator cuff tendon tear. IMPRESSION: 1. Right shoulder impingement with rotator cuff tear. 2. Hypertension. 3. Hyperlipidemia. 4. History of atrial fibrillation. PLAN: Right shoulder arthroscopy with subacromial decompression, arthroscopic rotator cuff repair and debridement. MMODL / IJN: [id number] /
[2022-07-16] MEDS ORDERED: LIDOCAINE 1% (10MG/ML) FOR IV START INTRADERMA ONE (08:35)
[2022-07-16] MEDS ORDERED: MIDAZOLAM 2 MG/2 ML VIAL IV ONE (09:07)
[2022-07-16] MEDS ORDERED: fentaNYL (PF) 50 MCG/ML 2 ML AMP IV ONE (09:07)
[2022-07-16] MEDS ORDERED: LIDOCAINE 2% INJ 20 MG/ML (2 ML VIAL) ONE (09:31)
[2022-07-16] MEDS ORDERED: ePHEDrine 50 MG/ML 1 ML VIAL ONE (09:31)
[2022-07-16] MEDS ORDERED: PHENYLEPHRINE-0.9% NACL SYG 1,000 MCG/10 ML SYRINGE ONE (09:31)
[2022-07-16] MEDS ORDERED: SUCCINYLCHOLINE CHLORIDE 200 MG/10 ML VIAL IV ONE (09:31)
[2022-07-16] MEDS ORDERED: ROPIVACAINE 5 MG/ML 30 ML VIAL ONE (09:31)
[2022-07-16] MEDS ORDERED: fentaNYL (PF) 50 MCG/ML 2 ML AMP ONE (09:31)
[2022-07-16] MEDS ORDERED: MIDAZOLAM 2 MG/2 ML VIAL ONE (09:31)
[2022-07-16] MEDS ORDERED: KETOROLAC 15 MG/ML 1 ML VIAL ONE (09:31)
[2022-07-16] MEDS ORDERED: PROPOFOL 10 MG/ML 20 ML VIAL IV ONE (09:31)
--- NOTE | 2022-07-16 10:08 | P.ANPRN ---
Procedure Note - Anesthesia - Nerve Block Performed Right Interscalene Time Out Performed: Yes (:) Date of Procedure: 07/16/22 Procedure Start Time: Procedure Stop Time: : Location of Patient: PreOp Indication: Acute Post-Operative Pain, Requested by Surgeon (Dr Carbone) Sedation Type: Sedate with meaningful contact maintained Preparation: Sterile Prep Position: Supine Catheter: None Needle Types: Pajunk Needle Gauge: Other (see comment) (22g) Ultrasound used to visualize needle placement: Yes Ultrasound used to observe medication spread: Yes Injectate: 0.5% Ropivacaine (see comment for volume) (20cc) Blood Aspirated: No Pain Paresthesia on Injection Noted: No Resistance on Injection: Normal Image Stored and Saved: Yes Events: Uneventful and Well Tolerated
--- NOTE | 2022-07-16 11:16 | P.OP ---
Date of Procedure: 07/16/22 Preoperative Diagnosis: Right shoulder rotator cuff tear Postoperative Diagnosis: 1. Right shoulder rotator cuff tear 2. Right shoulder impingement 3. Right shoulder partial long head biceps tendon tear 4. Right shoulder grade 4 chondromalacia humeral head Procedure(s) Performed: 1. Right shoulder arthroscopic rotator cuff repair 2. Right shoulder arthroscopic subacromial decompression 3. Right shoulder arthroscopic biceps tenotomy Implants: 44.75 Arthrex swivel lock anchors Anesthesia: GETA, regional (Interscalene block) Surgeon: Prasanna Carbone [employer] Supervisor #1: Vic Walls Estimated Blood Loss (ml): 11 Pathology: none sent Condition: stable Disposition: PACU Indications for Procedure: 72-year-old patient seen with progressive right shoulder pain. After treatment options were discussed, she elected to proceed with arthroscopy. Operative Findings: see description of procedure Description of Procedure: Patient underwent an interscalene block by department of anesthesia. The patient was then taken to the operative suite. The patient underwent a general anesthetic by the department of anesthesia. The patient was placed into a lateral position and secured. There was appropriate padding of the bony prominence. Right shoulder was then prepped and draped in normal sterile orthopedic fashion. We placed the extremity in 10 pounds of longitudinal traction. A posterior incision was now made for a posterior working portal site. The trocar and cannula were inserted into the glenohumeral joint. Arthroscopy was initiated. Spinal needle was now inserted anteriorly, to ascertain the anterior working portal site. An incision was now made in that area, a trocar was inserted followed by a probe. There was significant partial tearing long he ad biceps tendon. The labrum appeared diminutive was some superficial fraying. There was an area of grade 4 chondral malacia central aspect humeral head measuring about 1.5 some years in diameter. There were no osteochondral tears present. I performed an arthroscopic biceps tenotomy. I debrided the superficial fraying of the labrum. The residual labrum was probed and was found to be stable. Instruments were now removed from glenohumeral joint. Utilizing the posterior working portal site, the trocar and cannula were inserted into the subacromial space. Arthroscopy initiated. I made an incision 2 fingerbreadths lateral to the acromion. I introduced my trocar followed by my ArthroCare ablator. I now began ablating thick subacromial bursal tissue, which exposed the undersurface of the anterior acromion. There was diminished subacromial space. There was a very prominent anterior acromion. A motorized bur was introduced and a subacromial decompression was performed. I also excised so me osteophytes off the inferior aspect of the distal clavicle. The AC joint was visualized and noted to be moderately arthritic, I did not think enough to warrant Paul procedure. I turned my attention to the rotator cuff. There was a 2.53 cm rotator cuff tear. I debrided the margins getting down to stable tendon tissue. I introduced my motorized bur and abraded the footprint area, getting some petechial bleeding. I now made an accessory portal site off the lateral aspect of the acromion. I punched 2 holes medial for medial row fixation with the assistance of Marcello JEFFRIES carefully tapping the punch with a mallet as I held the punch and the camera. I now introduced both anchors into the pre- punched holes and Marcello JEFFRIES tapped them with the mallet as I held anchors and the camera. Marcello JEFFRIES now screwed the anchors in place a while I held the anchor guide and camera. All 8 limbs of suture were now passed through good bites of rotator cuff tendon. I now punched 2 holes for lateral row fixation again I held the punch and camera while Marcello JEFFRIES used a mallet to tap in the punch. We now passed sutures through both anchors and individually I introduced the anchors into the pre-punch holes I held the anchor guide in position with one hand holding the camera with the other hand while Marcello JEFFRIES tensioned the sutures and screwed in the anchors one at a time. All residual suture limbs were now clipped. We had good compression of the tendon along the entire footprint. Instruments now removed from the portal sites. All portal sites were approximated with nylon suture. Sterile dressings were applied followed by a shoulder immobilizer. Vic JEFFRIES assisted in this complex case. The patient was awakened, transferred to a bed, and taken to recovery in stable condition.
[2022-07-16 11:26] VITALS: TEMP 97.5
[2022-07-16 12:06] VITALS: RESP 18
[2022-07-16 12:42] VITALS: BP 132/76; PULSE 68
== END 2022-07-16 12:48 | disposition home or self-care (01) ==
LOC: OR 07:37
PROVIDERS: ATTEND Orthopaedic Surgery
DX: M75.111 Incomplete rotator cuff tear or rupture of right shoulder, not specified as traumatic (principal); M75.41 Impingement syndrome of right shoulder; G89.18 Other acute postprocedural pain; I10 Essential (primary) hypertension; E78.5 Hyperlipidemia, unspecified; I48.91 Unspecified atrial fibrillation; Z98.890 Other specified postprocedural states; Z79.899 Other long term (current) drug therapy; Z88.0 Allergy status to penicillin
CPT/HCPCS: 29827; 29826; 64415; 76942; C1713 ×2; J2250; J0330; J1100; J0690; J2405; J3010; J2795; J1885; J2370; J2704; J2001

== ENCOUNTER → 2022-12-29 | Outpatient (CLI) | payer MEDICARE, OTHER ==
--- NOTE | 2022-12-29 07:50 | BD ---
EXAMINATION TYPE: Axial Bone Density DATE OF EXAM: 12/29/2022 CLINICAL HISTORY: 72 years old Female. ICD-10 CODE: Z78.0 POST MENOPAUSAL Height: 5 ft 6 1/2 in Weight: 203 FRAX RISK QUESTIONS: Alcohol (3 or more units per day): no Family History (Parent hip fracture): no Glucocorticoids (More than 3mos): no (Ex: prednisone, prednisolone, methylprednisolone, dexamethasone, and hydrocortisone). History of Fracture in Adulthood: yes Secondary Osteoporosis: 1. Type 1 Diabetes: no 2. Hyperthyroidism: no 3. Menopause before 45: yes 4. Malnutrition: no 5. Chronic liver disease: no Rheumatoid Arthritis: no Current Tobacco Use: no RISK FACTORS HISTORY OF: Surgery to Spine/Hip(right/left)/Wrist (right/left): no Family History of Osteoporosis: no Active: yes Diet low in dairy products/other sources of calcium: no Postmenopausal woman: yes Take estrogen and/or progesterone medications: no Lost more than 2 inches in height since high school: yes Frequent falls: no Poor Health: good Hyperparathyroidism: no Adrenal Insufficiency: no MEDICATIONS: Additional Medications: atorvastatin, carvedilol, lisinopril, pantoprazole, Additional History: EXAM MEASUREMENTS: Bone mineral densitometry was performed using the Grata System. Bone mineral density as measured about the Lumbar spine is: ----- L1-L4(G/cm2): 1.181 T Score Values are as follows: ----- L1: 0.2 ----- L2: -0.8 ----- L3: 0.4 ----- L4: 0.2 ----- L1-L4: 0.0 Z Score Values are as follows: ----- L1: 1.0 ----- L2: -0.1 ----- L3: 1.2 ----- L4: 0.9 ----- L1-L4: 0.8 baseline Bone mineral density about the R hip (g/cm2): 0.931 Bone mineral density about the L hip (g/cm2): 0.876 T Score values are as follows: -----R Neck: -0.8 -----L Neck: -1.2 -----R Total: -0.7 -----L Total: -0.8 Z Score values are as follows: -----R Neck: -0.8 -----L Neck: -1.2 -----R Total: 0.1 -----L Total: 0.0 baseline FRAX%s: The graph provided illustrates a 14.1 % chance for a major osteoporotic fx and a 1.6 % chance for the hips probability for fx in 10 years time. IMPRESSION: Osteopenia (T Score between -2.5 and -1). There is slightly increased risk of fracture and the patient may be considered for treatment. Re-Screen 2-5 years. NOTE: T-SCORE=SD OF THE YOUNG ADULT MEAN.
== END | disposition home or self-care (01) ==
LOC: RADBDWWP 07:09
PROVIDERS: ATTEND Family Medicine
DX: M85.89 Other specified disorders of bone density and structure, multiple sites (principal); Z78.0 Asymptomatic menopausal state
CPT/HCPCS: 77080

== ENCOUNTER → 2023-04-13 | Outpatient (CLI) | payer MEDICARE, OTHER ==
--- NOTE | 2023-04-21 14:54 | MR ---
EXAMINATION TYPE: MR knee RT wo con DATE OF EXAM: 04/13/2023 COMPARISON: None HISTORY: Right knee pain. TECHNIQUE: Multiplanar, multisequence imaging of the right knee is performed without IV contrast. FINDINGS: MEDIAL MENISCUS: Anterior and posterior horns are intact without tear. LATERAL MENISCUS: Anterior and posterior horns are intact without tear. CRUCIATE LIGAMENTS: The anterior and posterior cruciate ligaments are intact and unremarkable. COLLATERAL LIGAMENTS: The medial collateral ligament and lateral collateral ligament complex are inta ct and unremarkable. EXTENSOR MECHANISM: Visualized quadriceps and patellar tendons are intact. EFFUSION: No significant suprapatellar joint effusion. POPLITEAL CYST: Mildly septated Perez's cyst measuring 4.3 cm in length by 1.1 cm in AP dimension. TRICOMPARTMENT SPACES: Moderate degenerative narrowing patellofemoral joint space with early changes of chondral malacia patella. Mild narrowing medial tibiofemoral joint space. Intercondylar spur forma tion noted. CARTILAGE: Thinning of the articular cartilage over no focal defects seen. BONE MARROW SIGNAL: No focal abnormal marrow signal is appreciated. OTHER: No additional significant abnormality is appreciated. IMPRESSION: 1. Perez's cyst. 2. Degenerative changes as noted.
== END | disposition home or self-care (01) ==
LOC: RADMRIMAIN 10:52
PROVIDERS: ATTEND Orthopaedic Surgery
DX: M17.11 Unilateral primary osteoarthritis, right knee (principal); M71.21 Synovial cyst of popliteal space [Baker], right knee

== ENCOUNTER 2023-05-28 09:11 | Day surgery (SDC) | payer MEDICARE, OTHER ==
[2023-05-21 11:51] VITALS: BMI 31.1
--- NOTE | 2023-05-27 13:44 | HP ---
HISTORY AND PHYSICAL DATE OF SCHEDULED SURGERY: 05/28/2023. HISTORY OF PRESENT ILLNESS: Zina Olson is a 73-year-old patient seen with progressive right knee pain. We discussed options. She elected to proceed with right knee arthroscopy, consent was obtained. PAST MEDICAL HISTORY: Hypertension, hyperlipidemia, atrial fibrillation. PAST SURGICAL HISTORY: Shoulder arthroscopy, knee arthroscopy. DAILY MEDICATIONS: 1. Atorvastatin. 2. Carvedilol. 3. Aspirin. 4. Aleve. 5. Lisinopril. ALLERGIES: Penicillin. SOCIAL HISTORY: She denies tobacco use. PHYSICAL EVALUATION OF RIGHT KNEE: Her range of motion is +3 to 125, mild effusion. Tenderness along the medial joint line. Positive medial Laya's. Ligaments stable. Hip rotation without pain. Distal neurovascular exam is intact. IMAGING: Radiographs of the right knee revealed moderate osteoarthritis. MRI right knee revealed a Perez cyst with moderate osteoarthritis. IMPRESSION: 1. Intermittent right knee with osteochondral tear versus meniscal tear. 2. Atrial fibrillation. 3. Hyperlipidemia. 4. Hypertension. PLAN: Right knee arthroscopy with partial meniscectomy versus chondroplasty and debridement. MMODL / IJN: [id number] /
[2023-05-28] MEDS ORDERED: LIDOCAINE 2% INJ 20 MG/ML (2 ML VIAL) ONE (10:44)
[2023-05-28] MEDS ORDERED: fentaNYL (PF) 50 MCG/ML 2 ML AMP ONE (10:44)
[2023-05-28] MEDS ORDERED: PROPOFOL 10 MG/ML 20 ML VIAL IV ONE (10:44)
[2023-05-28] MEDS ORDERED: MIDAZOLAM 2 MG/2 ML VIAL ONE (10:44)
[2023-05-28] MEDS ORDERED: BUPIVACAINE (PF) 0.25% 10 ML VIAL MISCELLANE ONE (11:04)
[2023-05-28 11:35] VITALS: TEMP 96.8
--- NOTE | 2023-05-28 11:41 | P.OP ---
Date of Procedure: 05/28/23 Preoperative Diagnosis: Internal derangement right knee Postoperative Diagnosis: 1. Tear medial and lateral meniscus right knee 2. Grade 4 chondromalacia medial femoral condyle right knee 3. Grade 4 chondromalacia medial femoral sulcus right knee 4. Reactive synovitis medial, lateral and suprapatellar compartments right knee Procedure(s) Performed: 1. Arthroscopic partial medial and lateral meniscectomy right knee 2. Arthroscopic microfracture medial femoral condyle right knee 3. Arthroscopic microfracture medial femoral sulcus right knee 4. Arthroscopic partial synovectomy medial, lateral and suprapatellar compartments right knee Anesthesia: JUDITHA, local Surgeon: Prasanna Carbone Estimated Blood Loss (ml): 7 Pathology: none sent Condition: stable Disposition: PACU Indications for Procedure: 73-year-old patient seen with progressive right knee pain. After having treatment options discussed, she elected to proceed with arthroscopy. Operative Findings: See description of procedure Description of Procedure: Patient was taken to the operative suite. Patient underwent a general anesthetic by the department of anesthesia. Patient was given preoperative antibiotics. The right lower extremity was placed in a well-padded arthroscopic leg boykin. The right leg was prepped and draped in the normal sterile orthopedic fashion. A lateral parapatellar and suprapatellar incision was made. Trochars were inserted. Arthroscopy was initiated. Suprapatellar pouch revealed diffuse thick reactive synovitis. The patellofemoral joint appeared to articulate congruently. There was an area of grade 4 chondromalacia involving the medial femoral sulcus with exposed bone as well as grade 3 chondral malacia of the patella without osteochondral tears. The scope was guided into the medial gutter. No loose bodies or plica were identified. The scope was then guided into the medial compartment. A medial parapatellar incision was made. Trocar inserted followed by probe. There was a complex tear involving the posterior horn of the medial meniscus. There was near grade 4 chondromalacia along the weightbearing surface medial femoral condyle measuring 1 x 2 cm with exposed bone. There was some thick reactive synovitis anteriorly. I performed a partial medial meniscectomy getting down to stable meniscal tissue. I performed a partial synovectomy decompressing the reactive synovitis. I introduced a microfracture awl performed a microfracture to medial femoral condyle penetrating the bone with resultant bleeding at the microfracture site. Scope and probe were then guided into the intercondylar notch. Cruciates were identified, probed and found to be stable. The scope and probe were then guided into lateral compartment. There was a radial tear mid body lateral meniscus. There was thick reactive synovitis anteriorly. There was no chondromalacia present. I performed a partial lateral meniscectomy getting down to stable meniscal tissue. I performed a partial synovectomy. The residual meniscus was stable. There was good decompression of the synovitis. The scope was in guided back into the suprapatellar compartment. I introduced a motorized shaver into the suprapatellar compartment and debrided out some piecemeal fragments of meniscus I encountered. I performed a partial synovectomy. I now introduced a microfracture awl and I performed a microfracture to the area of exposed bone medial femoral condyle penetrating the bone with resultant bleeding at the microfracture site. I now took one more look around the entire knee, no residual debris. Instruments were now removed from the joint. The joint was infiltrated with .25% Marcaine. Steri-Strips were applied to the portal sites. Sterile dressings were applied. The patient was placed into a MERLIN hose. No tourniquet was utilized. The patient was awakened, transferred to a bed and taken to recovery stable satisfactory condition.
[2023-05-28 12:33] VITALS: RESP 18
[2023-05-28 12:46] VITALS: BP 139/85; PULSE 71
== END 2023-05-28 13:19 | disposition home or self-care (01) ==
LOC: OR 09:11
PROVIDERS: ATTEND Orthopaedic Surgery
DX: S83.241A Other tear of medial meniscus, current injury, right knee, initial encounter (principal); S83.281A Other tear of lateral meniscus, current injury, right knee, initial encounter; M65.9 Synovitis and tenosynovitis, unspecified; M22.41 Chondromalacia patellae, right knee; I10 Essential (primary) hypertension; E78.5 Hyperlipidemia, unspecified; I48.91 Unspecified atrial fibrillation; Z79.899 Other long term (current) drug therapy; Z88.0 Allergy status to penicillin; X58.XXXA Exposure to other specified factors, initial encounter
CPT/HCPCS: 29880; 29879; J2250; J1100; J0690; J2405; J3010; J2704; J1170; J2001; J0665

== ENCOUNTER → 2023-11-05 | Outpatient (CLI) | payer MEDICARE, OTHER ==
[2023-11-05 11:20] LABS: Basophils # (A) 0.04 X 10*3/uL (0.00-0.10); Basophils % (A) 0.9 %; Eosinophils # (A) 0.33 X 10*3/uL (0.04-0.35); Eosinophils % (A) 7.4 %; HCT 40.1 % (37.2-46.3); HGB 13.7 g/dL (12.0-15.0); Lymphocytes # (A) 1.46 X 10*3/uL (0.90-5.00); Lymphocytes % (A) 32.9 %; MCH 30.6 pg (27.0-32.0); MCHC 34.2 g/dL (32.0-37.0); MCV 89.7 FL (80.0-97.0); Mean Platelet Volume 11.5 FL (9.5-12.2); Monocytes # (A) 0.41 X 10*3/uL (0.20-1.00); Monocytes % (A) 9.2 %; NRBC Per 100 WBC 0 X 10*3/uL (0.00-0.01); Neutrophils # (A) 2.19 X 10*3/uL (1.80-7.70); Neutrophils % (A) 49.4 %; Platelet Count 154 X 10*3/uL (140-440); RBC 4.47 X 10*6/uL (4.10-5.20); RDW 13.1 % (11.5-14.5); WBC 4.44 X 10*3/uL (4.50-10.00)
[2023-11-05 11:37] LABS: Anion Gap 11.1 mmol/L (4.00-12.00); Carbon Dioxide 22.9 mmol/L (21.6-31.8); Potassium 4.1 mmol/L (3.5-5.5)
== END | disposition home or self-care (01) ==
LOC: LABPAT 06:57
PROVIDERS: ATTEND Orthopaedic Surgery
DX: Z01.812 Encounter for preprocedural laboratory examination (principal); M23.92 Unspecified internal derangement of left knee
CPT/HCPCS: 36415; 80051; 85025

== ENCOUNTER 2023-11-12 08:00 | Day surgery (SDC) | payer MEDICARE, OTHER ==
[2023-11-05 16:00] VITALS: BMI 30.4
--- NOTE | 2023-11-11 20:52 | HP ---
HISTORY AND PHYSICAL DATE OF SURGERY: 11/12/2023. HISTORY OF PRESENT ILLNESS: Zina Olson is a 73-year-old patient seen with progressive left knee pain. We discussed options regarding treatment. She elected to proceed with left knee arthroscopy. Consent was obtained. PAST MEDICAL HISTORY: Hyperlipidemia, hypertension, Afib. PAST SURGICAL HISTORY: Shoulder arthroscopy, knee arthroscopy. DAILY MEDICATIONS: 1. Atorvastatin. 2. Carvedilol. 3. Aspirin. 4. Lisinopril. ALLERGIES: Penicillin. SOCIAL HISTORY: She denies tobacco use. PHYSICAL EVALUATION OF THE LEFT KNEE: Her range of motion is 0 to 125 degrees. Mild effusion. Tenderness, medial joint line. Positive medial Laya's. Ligaments stable. Hip rotation without pain. Her distal neurovascular exam is intact. IMAGING STUDIES: Left knee radiographs revealed mild osteoarthritis. IMPRESSION: 1. Internal derangement of left knee with medial meniscal tear. 2. Hypertension. 3. Hyperlipidemia. 4. Atrial fibrillation. PLAN: Left knee arthroscopy with partial medial meniscectomy and debridement. MMODL / IJN: [id number] /
[~2023-11-12 08:00] MED LIST changes: +LIDOCAINE 1% (10MG/ML) FOR IV START INTRADERMA PRN; +droPERidol 5 MG/2 ML VIAL IVP ONE
[2023-11-12] MEDS ORDERED: PROPOFOL 10 MG/ML 20 ML VIAL IV ONE (09:15)
[2023-11-12] MEDS ORDERED: BUPIVACAINE (PF) 0.25% 30 ML VIAL SQ ONE ×2 (09:15→09:51)
[2023-11-12] MEDS ORDERED: MIDAZOLAM 2 MG/2 ML VIAL ONE (09:15)
[2023-11-12] MEDS ORDERED: fentaNYL (PF) 50 MCG/ML 2 ML AMP ONE (09:15)
[2023-11-12] MEDS ORDERED: LIDOCAINE 1% INJ 10MG/ML (20 ML MDV) ONE (09:15)
[2023-11-12] MEDS ORDERED: ePHEDrine 50 MG/ML 1 ML VIAL ONE (09:15)
[2023-11-12 10:06] VITALS: TEMP 96.3
--- NOTE | 2023-11-12 10:06 | P.OP ---
Date of Procedure: 11/12/23 Preoperative Diagnosis: Internal derangement left knee Postoperative Diagnosis: 1. Tear medial and lateral meniscus left knee 2. Grade IV chondromalacia medial femoral condyle left knee 3. Reactive synovitis medial, lateral and suprapatellar compartments left knee 4. Grade II chondromalacia patella left knee Procedure(s) Performed: 1. Arthroscopic partial medial lateral meniscectomy left knee 2. Arthroscopic microfracture medial femoral condyle left knee 3. Arthroscopic partial synovectomy medial, lateral and suprapatellar compartments left knee 4. Arthroscopic chondroplasty patella left knee Anesthesia: JUDITHA, local Surgeon: Prasanna Carbone Estimated Blood Loss (ml): 6 Pathology: none sent Condition: stable Disposition: PACU Indications for Procedure: 73-year-old patient seen with progressive left knee pain. After treatment options were discussed, she elected to proceed with arthroscopy. Operative Findings: See description of procedure Description of Procedure: Patient was taken to the operative suite. Patient underwent a general anesthetic by the department of anesthesia. Patient was given preoperative antibiotics. The left lower extremity was placed in a well-padded arthroscopic leg boykin. The left leg was prepped and draped in the normal sterile orthopedic fashion. A lateral parapatellar and suprapatellar incision was made. Trochars were inserted. Arthroscopy was initiated. Suprapatellar pouch revealed diffuse thick reactive synovitis. The patellofemoral joint appeared to articulate congruently. There was grade II chondromalacia of the patella with some small osteochondral flap tears. The scope was guided into the medial gutter. No loose bodies or plica were identified. The scope was then guided into the medial compartment. A medial parapatellar incision was made. Trocar inserted followed by probe. There was a radial tear posterior horn medial meniscus. There was an area of grade III/IV chondromalacia medial femoral condyle with osteochondral flap tears. There was thick reactive synovitis anteriorly. I performed a partial medial meniscectomy getting down to stable meniscal tissue. I performed a chondroplasty of the medial femoral condyle getting down to a stable osteochondral tissue. I performed a partial synovectomy decompressing the reactive synovitis anteriorly. I noted an area of exposed bone on the medial femoral condyle weightbearing surface measuring just about 1 cm in diameter. I introduced a microfracture awl and I performed a microfracture to that area of exposed bone, penetrating the bone with resultant bleeding at the microfracture site. The residual meniscus was probed and was found to be stable. There was good decompression of the synovitis. The residual osteochondral surface was stable. Scope and probe were then guided i nto the intercondylar notch. Cruciates were identified, probed and found to be stable. The scope and probe were then guided into lateral compartment. There was a small radial tear involving the mid body of the lateral meniscus. There was no significant chondromalacia of the lateral compartment. There was some reactive synovitis anteriorly. I performed a partial lateral meniscectomy getting down to stable meniscal tissue. I performed a partial synovectomy. The residual meniscus was probed and was found to be stable. There was good decompression of the synovitis. The scope was in guided back into the suprapatellar compartment. I introduced a motorized shaver into the Caceres patella compartment. I debrided some piecemeal fragments of meniscus that I encountered. I performed a chondroplasty of the patella getting down to stable osteochondral tissue. I performed a partial synovectomy decompressing the reactive synovitis. The shaver was now removed. There was good decompression o f the synovitis. I took one more look around the entire knee, no residual debris. Instruments were now removed from the joint. The joint was infiltrated with .25% Marcaine. Steri-Strips were applied to the portal sites. Sterile dressings were applied. The patient was placed into a MERLIN hose. No tourniquet was utilized. The patient was awakened, transferred to a bed and taken to recovery stable satisfactory condition.
[2023-11-12] MEDS ORDERED: LACTATED RINGERS 1,000 ML IV ONE (11:03)
[2023-11-12 11:52] VITALS: BP 127/79; PULSE 67; RESP 18
== END 2023-11-12 11:47 | disposition home or self-care (01) ==
LOC: OR 08:00
PROVIDERS: ATTEND Orthopaedic Surgery
DX: S83.282A Other tear of lateral meniscus, current injury, left knee, initial encounter (principal); M65.162 Other infective (teno)synovitis, left knee; M22.42 Chondromalacia patellae, left knee; I48.91 Unspecified atrial fibrillation; I10 Essential (primary) hypertension; E78.5 Hyperlipidemia, unspecified; Z79.899 Other long term (current) drug therapy; Z88.0 Allergy status to penicillin; Z79.82 Long term (current) use of aspirin; X58.XXXA Exposure to other specified factors, initial encounter
CPT/HCPCS: 29880; J2250; J1100; J0690; J2405; J2001; J3010; J2704; J0665

== ENCOUNTER → 2024-01-14 | Outpatient (CLI) | payer MEDICARE, OTHER ==
[2024-01-14 10:19] LABS: ALT 15 U/L (8-44); AST 16 U/L (13-35); Albumin 4.1 g/dL (3.8-4.9); Albumin/Globulin Ratio 1.95 Ratio (1.60-3.17); Alkaline Phosphatase 102 U/L (41-126); Bilirubin, Conjugated <0.20 mg/dL (0.20-0.40); Bilirubin,Unconjugated >0.40 mg/dL (0.20-1.00); Chol/HDL Ratio 2.39 Ratio; Globulin 2.1 g/dL (1.6-3.3); LDL Cholesterol,Calculated 69.9 mg/dL (0.0-131.0); Total Bilirubin 0.6 mg/dL (0.3-1.2); Total Protein 6.2 g/dL (6.2-8.2); VLDL Calculation 16.34 mg/dL (5.00-40.00)
== END | disposition home or self-care (01) ==
LOC: LABWHC1 07:02
PROVIDERS: ATTEND Internal Medicine Cardiovascular Disease
DX: E78.2 Mixed hyperlipidemia (principal)
CPT/HCPCS: 36415; 80061; 80076

== ENCOUNTER → 2024-01-20 | Outpatient (CLI) | payer MEDICARE, OTHER ==
--- NOTE | 2024-01-27 06:07 | MR ---
EXAMINATION TYPE: MR shoulder RT wo con DATE OF EXAM: 01/20/2024 COMPARISON: MRI of right shoulder March 05, 2022. Outside right shoulder x-rays January 01, 2024 HISTORY: Right shoulder pain with difficulty raising arm overhead for 10 years, hx injury/surgery. TECHNIQUE: Multiplanar, multisequence imaging of the right shoulder is performed without contrast. FINDINGS: Rotator Cuff: Recurrent large full-thickness retracted tear of the supraspinatus tendon with a few an terior fibers likely remaining intact large cleft now identified. Worsening increased signal througho ut the infraspinatus tendon which remains intact. Subscapularis tendon intact. Moderate to severe atr ophy of the supraspinatus and infraspinatus muscles remains present.. [id number] atrophy of the subscapularis muscle redemonstrated. Acromioclavicular Joint: Mild narrowing demonstrated. Glenohumeral Joint: High riding humeral head now identified. Medial narrowing and spurring is seen. M oderate to large size joint effusion is slightly worsened from prior. Labrum: Blunting and abnormal signal consistent with tear is now seen. Biceps Tendon: The long head of biceps is in normal location within bicipital groove. Intracapsular p ortion not well identified. Bone marrow signal: Extensive susceptibility artifact from prior surgery is again seen. Some subchond ral cystic change in the osseous glenoid redemonstrated.. Other: No additional significant abnormality is appreciated. IMPRESSION: 1. Significant and recurrent full-thickness tear of marked majority of the supraspinatus tendon. New high riding humeral head suggests underlying instability. There is new Superior labral tear. Fairly severe glenohumeral joint arthropathy and more prominent large joint eff usion noted.
== END | disposition home or self-care (01) ==
LOC: RADMRIMAIN 10:50
PROVIDERS: ATTEND Orthopaedic Surgery
DX: M75.121 Complete rotator cuff tear or rupture of right shoulder, not specified as traumatic (principal); M19.011 Primary osteoarthritis, right shoulder; M25.411 Effusion, right shoulder

== ENCOUNTER → 2024-02-03 | Outpatient (CLI) | payer MEDICARE, OTHER ==
--- NOTE | 2024-02-05 10:25 | MM ---
Reason for Exam: Screening (asymptomatic). Last mammogram was performed 1 year(s) and 7 month(s) ago. Patient History: Menarche at age 14. First Full-Term at age 18. Hysterectomy at age 32. Postmenopausal. Patient used Estrogen for 12 years. Risk Values: Jacque 5 year model risk: 1.3%. NCI Lifetime model risk: 3.3%. Prior Study Comparison: 04/05/2008 Bilateral Screening Mammogram, [facility]. 02/08/2018 Bilateral Screening Mammogram, [facility]. 06/13/2022 Bilateral MG 3D screening mammo w/cad, [facility]. Tissue Density: The breasts are heterogeneously dense, which may obscure small masses. Findings: Analyzed By CAD. There is no suspicious group of microcalcifications or new suspicious mass in either breast. Overall Assessment: Benign, BI-RAD 2 Management: Screening Mammogram of both breasts in 1 year. . Patient should continue monthly self-breast exams. A clinical breast exam by your physician is recommended on an annual basis. This exam should not preclude additional follow-up of suspicious palpable abnormalities. Note on Jacque scores and lifetime risk: 1. A Jacque score greater than 3% is considered moderate risk. If this is the case, consider specialist referral to assess eligibility for a risk reducing agent. 2. If overall lifetime risk for the development of breast cancer is 20% or higher, the patient may qualify for future screening with alternating mammogram and breast MRI. Electronically signed and approved by: Fadi Rojas M.D. Radiologis
== END | disposition home or self-care (01) ==
LOC: RADMAMWWP 09:16
PROVIDERS: ATTEND Family Medicine
DX: Z12.31 Encounter for screening mammogram for malignant neoplasm of breast (principal); Z78.0 Asymptomatic menopausal state
CPT/HCPCS: 77063; 77067

== ENCOUNTER → 2024-02-10 | Outpatient (CLI) | payer MEDICARE, OTHER | END | disposition home or self-care (01) | LOC: LABPAT 10:05 | PROVIDERS: ATTEND Orthopaedic Surgery | DX: Z01.812 Encounter for preprocedural laboratory examination (principal); M12.811 Other specific arthropathies, not elsewhere classified, right shoulder; Z22.322 Carrier or suspected carrier of Methicillin resistant Staphylococcus aureus | CPT/HCPCS: 87070 ==

== ENCOUNTER → 2024-02-27 | Outpatient (CLI) | payer MEDICARE, OTHER ==
--- NOTE | 2024-02-27 15:25 | XR ---
EXAMINATION TYPE: XR chest 2V DATE OF EXAM: 02/27/2024 8:59 AM CLINICAL INDICATION:Female, 74 years old with history of R09.89 XR 2V OTH SYMPTOMS AND SIGNS INVOLVI NG THE; PHH. Respiratory crackles COMPARISON: 06/13/2022 TECHNIQUE: XR chest 2V. Frontal and lateral views of the chest.. FINDINGS: Cardiomediastinal silhouette is stable and within normal limits. Lungs appear mildly hyperinflated with mild coarsening of the interstitium and mild biapical pleural thickening, can be seen with emphysema/COPD. No focal consolidation, sizable pleural effusion, or vis ible pneumothorax. No acute bony abnormality. Degenerative changes of the spine. Unremarkable soft tissues. IMPRESSION: No acute findings, or significant interval change.
== END | disposition home or self-care (01) ==
LOC: RADXRMAIN 08:33
PROVIDERS: ATTEND Family Medicine
DX: R09.89 Other specified symptoms and signs involving the circulatory and respiratory systems (principal)
CPT/HCPCS: 71046

== ENCOUNTER 2024-03-08 10:44 | Day surgery (SDC) | payer MEDICARE, OTHER ==
[2024-03-02 12:35] VITALS: BMI 29.9
--- NOTE | 2024-03-07 10:06 | P.HPOR ---
History of Present Illness H&P Date: 03/07/24 Chief Complaint: Right shoulder pain and weakness The patient is a 74-year-old retired female who presents with right shoulder pain and weakness for the past several years. She has a long history with multiple previous right shoulder arthroscopies. She is having pain with any attempted overhead use and at night. She's tried therapy, injections, and medications without much relief. Review of Systems As per HPI Past Medical History Past Medical History: Atrial Fibrillation, GERD/Reflux, Hyperlipidemia, Hypertension Additional Past Medical History / Comment(s): Hx colitis, diverticulitis. Hx A- fib with cardioversion and no problems since. Hx migraines, none in a long time. "Cholesterol back to normal." History of Any Multi-Drug Resistant Organisms: None Reported Past Surgical History: Hysterectomy, Orthopedic Surgery Additional Past Surgical History / Comment(s): Right rotator cuff repair X3, c olonoscopy, cardioversion, bilateral knee arthroscopy. Past Anesthesia/Blood Transfusion Reactions: No Reported Reaction Smoking Status: Former smoker - Past Family History Father Family Medical History: Cancer Additional Family Medical History / Comment(s): Bladder cancer, in his 80's. Mother Family Medical History: Cancer Additional Family Medical History / Comment(s): at age 85. Medications and Allergies Home Medications Medication Instructions Recorded Confirmed Type Aspirin [Adult Low Dose Aspirin EC] 81 mg PO DAILY 02/04/21 03/02/24 History Magnesium Gluconate [Magonate] 500 mg PO DAILY 02/04/21 03/02/24 History carvediloL [Coreg] 6.25 mg PO QAM 02/04/21 03/02/24 History Atorvastatin [Lipitor] 20 mg PO HS 07/15/22 03/02/24 History DULoxetine HCL [Cymbalta] 30 mg PO QAM 11/05/23 03/02/24 History Losartan [Cozaar] 25 mg PO QAM 11/05/23 03/02/24 History Pantoprazole [Protonix] 40 mg PO HS 11/05/23 03/02/24 History oxyBUTYnin chloride [Ditropan] 10 mg PO HS 11/05/23 03/02/24 History Allergies Allergy/AdvReac Type Severity Reaction Status Date / Time amoxicillin Allergy Rash/Hives Verified 03/02/24 11:42 Penicillins Allergy Unknown Verified 03/02/24 11:42 Childhood Physical Examination - Shoulder right Appearance: effusion Tenderness with palpation: anterior, bicipital groove Pain: with abduction, with forward flexion ROM: forward flexion: 140 degrees ROM: internal rotation: lower lumbar ROM: external rotation: 0 degrees Crepitus with motion: Yes Strength: abduction: 3/5 Strength: external rotation: 4/5 Tests: internal impingement tests: positive, external impingment tests: positive Results Patient is a well-developed well-nourished female approximately 5 foot 7, 200 pounds of endomorphic habitus. HEENT exam is nonfocal, neck is supple. She is tender about the right shoulder anterior subacromial space. Moderate crepitus is noted. Impingement test, Neer test, and speed test are positive. Her distal neurovascular exam otherwise appears intact in the right upper extremity. - Diagnostic results Shoulder MRI: image reviewed (MRI of the right shoulder shows evidence of a la rge retracted rotator cuff tear with atrophy along with severe glenohumeral joint space narrowing and arthropathy.) Assessment and Plan Assessment: Right rotator cuff arthropathy/large chronic retracted tear Plan: I talked to the patient at length regarding her condition along with treatment options. At this point she is quite symptomatic despite previous conservative measures. After a thorough discussion she opts to proceed with surgery. We will plan to proceed with a reverse right total shoulder arthroplasty. Risks and benefits were discussed at length in layman's terms.
[~2024-03-08 10:44] MED LIST changes: -DEXAMETHASONE SOD PHOSPHATE 4 MG/ML 1 ML VIAL IV ONE; -LACTATED RINGERS 1,000 ML IV SCH; -ONDANSETRON 4 MG/2 ML VIAL IVP ONE; +TRANEXAMIC 1,000 MG/100ML-NACL 1,000 MG in SALINE 1 100ML.BAG IVPB PRN; -droPERidol 5 MG/2 ML VIAL IVP ONE
[2024-03-08] MEDS: LACTATED RINGERS 1,000 ML IV SCH (11:03)
[2024-03-08] MEDS: ACETAMINOPHEN TAB 500 MG TAB PO PRN (11:17)
[2024-03-08] MEDS: MELOXICAM 7.5 MG TAB PO PRN (11:17)
[2024-03-08] MEDS: ONDANSETRON 4 MG/2 ML VIAL IVP ONE (11:17)
[2024-03-08] MEDS: MIDAZOLAM 2 MG/2 ML VIAL IVP ONE (11:31)
--- NOTE | 2024-03-08 11:57 | P.ANPRN ---
Procedure Note - Anesthesia - Nerve Block Performed Right Interscalene Single Time Out Performed: Yes (0100) Date of Procedure: 03/08/24 Location of Patient: PreOp Indication: Acute Post-Operative Pain, Dx/Pain Location (Right shoulder), Requested by Surgeon Specifically requested for management of pain by DrCarmelo: Geoff Francis Sedation Type: Sedate with meaningful contact maintained Preparation: Sterile Prep Position: Supine Catheter: None Needle Types: Pajunk Needle Gauge: 18, 21 (51 mm) Ultrasound used to visualize needle placement: No Ultrasound used to observe medication spread: No Injectate: 0.5% Ropivacaine (see comment for volume) (30 mL + 10 cc normal saline + 4mg of decadron) Blood Aspirated: No Pain Paresthesia on Injection Noted: No Resistance on Injection: Normal Image Stored and Saved: Yes Events: Uneventful and Well Tolerated
[2024-03-08] MEDS ORDERED: ROCURONIUM 10 MG/ML (5 ML VIAL) IV ONE (12:42)
[2024-03-08] MEDS ORDERED: fentaNYL (PF) 50 MCG/ML 2 ML AMP ONE (12:42)
[2024-03-08] MEDS ORDERED: TRANEXAMIC 1,000 MG/100ML-NACL PREMIX BAG ONE (12:42)
[2024-03-08] MEDS ORDERED: LIDOCAINE 1% INJ 10MG/ML (20 ML MDV) ONE (12:42)
[2024-03-08] MEDS ORDERED: PHENYLEPHRINE 10 MG/ML VIAL ONE (12:42)
[2024-03-08] MEDS ORDERED: MIDAZOLAM 2 MG/2 ML VIAL ONE (12:42)
[2024-03-08] MEDS ORDERED: ROPIVACAINE 5 MG/ML 30 ML VIAL ONE (12:42)
[2024-03-08] MEDS ORDERED: PROPOFOL 10 MG/ML 20 ML VIAL IV ONE (12:42)
[2024-03-08] MEDS ORDERED: NEOSTIGMINE 1 MG/ML 10 ML VIAL ONE (12:42)
[2024-03-08] MEDS ORDERED: GLYCOPYRROLATE 0.2 MG/ML 2 ML VIAL ONE (12:42)
[2024-03-08] MEDS ORDERED: DEXAMETHASONE SOD PHOSPHATE 4 MG/ML 1 ML VIAL ONE (12:42)
[2024-03-08] MEDS ORDERED: SUCCINYLCHOLINE CHLORIDE 200 MG/10 ML VIAL IV ONE (12:42)
[2024-03-08] MEDS ORDERED: SENNOSIDES-DOCUSATE SODIUM 1 EACH TAB PO PRN (14:48)
[2024-03-08] MEDS ORDERED: HYDROmorphone 0.5 MG/0.5 ML SYRINGE IVP PRN (14:48)
[2024-03-08] MEDS ORDERED: hydrOXYzine pamoate 25 MG CAP PO PRN (14:48)
--- NOTE | 2024-03-08 14:57 | P.OP ---
Date of Procedure: 03/08/24 Preoperative Diagnosis: Severe right rotator cuff arthropathy Postoperative Diagnosis: Same Procedure(s) Performed: Right reverse total shoulder arthroplasty Implants: Depuy Delta Xtend size 12 press-fit humeral stem, size 1 epiphysis, 38+6 articular surface, 38 mm standard glenosphere, standard metaglene baseplate Anesthesia: ramírez CROFT Surgeon: Geoff Francis Teletype Mechanic #1: Franki Charles Estimated Blood Loss (ml): 100 Pathology: none sent Condition: stable Disposition: PACU Indications for Procedure: The patient is a 74-year-old female who presents with progressive right shoulder pain and weakness after previously undergoing multiple rotator cuff repairs. Upon evaluation she was noted to have's severe rotator cuff arthropathy. A discussion of the risks and benefits of operative intervention versus continued conservative measures was made with the patient. She opted to proceed with surgery. Operative risks include infection, neurovascular injury, development of blood clots, fracture, possible instability, possible component loosening/failure and need for subsequent procedures was discussed. Informed consent was obtained. Operative Findings: As below Description of Procedure: The patient was brought to the operating room, and after induction of general anesthesia was placed in a beachchair position. The bony prominences were appropriately padded. I examined the right shoulder. There was moderate lack of passive forward elevation and external rotation. The right upper extremity was prepped and draped in normal fashion. The bony outlines the coracoid process, distal clavicle, and acromion were outlined with a skin marker. A pulse centimeter deltopectoral incision was made lateral to the coracoid process. Skin was incised sharply. Subcutaneous tissues were divided bluntly. Electrocautery was used for hemostasis. The cephalic vein was identified and gently retracted laterally with the deltoid. The deltopectoral was bluntly developed. Subdeltoid adhesions were then released. The self-retaining retractor was placed. The conjoined tendon was retracted medially and the deltoid laterally. The biceps was identified. Its sheath was opened. A biceps tenotomy was performed along the remaining tendon did retract distally. The subscapularis was peeled from the lesser tuberosity subperiosteally. Pseudocapsule was excised. The head was then exposed. The shoulder was dislocated. A starting hole was made in line with the humeral shaft. The canal was reamed by hand up to size 12. There was good distal chatter. The cutting guide was then placed. I planned on 20 of retroversion. The humeral head cut was then made. The bone was removed in one fragment. Residual inferomedial osteophytes were removed flush with the [place] cortical bone. Attention was then paid towards preparing the glenoid. An anterior and posterior retractors placed. The labrum was released from the 12-6 o'clock position. Remaining biceps was removed as well. A guidepin was placed in the inferior aspect of the glenoid with the guide slightly tilting inferior. The reamer was used down to a bleeding bony surface. The central peg hole was drilled. The standard baseplate was inserted with good purchase. Inferior, superior, and posterior locking screws the appropriate length were placed. Good purchase was obtained. The 38 mm glenosphere was inserted over a guidewire. This was fully seated. Care was taken to avoid any soft tissue interposition. Attention was then paid towards preparing the proximal humerus. The appropriate broach was placed and 20 of retroversion and was fully seated. An eccentric size 1 epiphyseal reamer was utilized. A size 12 stem with a size 1 epiphysis was placed and 20 of retroversion. Trial reduction was obtained with a 38 mm + 6 articular surface. The shoulder was taken through range of motion. The shoulder was felt to be stable in flexion and extension with internal and external rotation. I felt there was adequate congregation of soft tissue tension judging off the conjoined tendon. The shoulder was gently dislocated. The trial components were then removed. 2 drill holes were made and #2 Ethibond suture passed for reattachment of the subscapularis at the level of the lesser tuberosity. The final size 12 press-fit stem along with a size 1 epiphysis was fully seated. Th ere was good rotational stability. The 38 mm + 6 articular surface was impacted. The shoulder again was gently reduced and taken through range of motion. Again it was felt to be stable in all planes. Pulsatile lavage was utilized. The subscapularis was a attached to the lesser tuberosity with #2 Ethibond suture. The deltopectoral interval was closed with interrupted 2-0 Vicryl sutures. The skin was reapproximated with 3-0 subcuticular Prolene suture. Steri-Strips were applied. A sterile dressing was applied. A sling was placed. The patient was awoken from general anesthesia and transferred to recovery room in good condition. Blood loss was estimated at 100 mL. No complications were incurred. Sponge and needle counts were correct at the end the case. Franki JEFFRIES assisted during the major components of the case to include exposure, glenoid and humeral preparation, implantation, and closure.
--- NOTE | 2024-03-08 16:00 | XR ---
EXAMINATION TYPE: XR shoulder limited RT DATE OF EXAM: 03/08/2024 COMPARISON: None HISTORY: Post right shoulder replacement TECHNIQUE: AP right shoulder FINDINGS: Humeral and glenoid components of the place. No acute fractures are evident. Postsurgical s oft tissue changes are evident. IMPRESSION: 1. No acute fractures post right shoulder replacement
[2024-03-08] MEDS: LACTATED RINGERS 1,000 ML IV ONE (16:02)
[2024-03-08] MEDS: HYDROcodone/APAP 5-325MG 1 EACH TAB PO PRN (21:30)
[2024-03-08] MEDS: APIXABAN 2.5 MG TABLET PO SCH (21:31)
[2024-03-09 02:32] VITALS: RESP 17
[2024-03-09 08:04] VITALS: BP 128/76; PULSE 97; TEMP 97.8
[2024-03-09] MEDS: HYDROmorphone 0.5 MG/0.5 ML SYRINGE IVP PRN (09:03)
--- NOTE | 2024-03-09 12:35 | P.DS ---
Providers Date of admission: 03/08/2024 Expected date of discharge: 03/09/24 Attending physician: Geoff Francis Consults: 03/08/24 14:48 Consult Physician Routine Consulting Provider: Temi Cordoba Consult Reason/Comments: medical management s/p reverse right total shoulder arthroplasty Do you want consulting provider notified?: Yes Primary care physician: Beto Gasca [facility] Course: Date of admission: 03/08/2024 Date of discharge: 03/09/2024 Admission diagnosis: Severe right rotator cuff arthropathy Discharge diagnosis: Same Attending physician: Dr. Francis Surgical procedures: Reverse right total shoulder arthroplasty Brief history: Patient is a 74-year-old female with a history of severe right rotator cuff arthropathy. At this point patient has failed conservative treatment measures and has opted to proceed with a elective reverse right total shoulder arthroplasty. Hospital course: Details of patient's surgery can be found in operative report. Patient tolerated the procedure well and was subsequently transported to orthopedic floor. Patient's orthopeidc and medical care was provided daily. Patient had daily laboratory tests performed for evaluation of overall blood counts. Patient had daily physical therapy to include strengthening range of motion as well as education with walker ambulation. Patient was treated with Eliquis for their postoperative DVT prophylaxis during their inpatient stay. Patient was noted to have a relatively uneventful postoperative course. Patient reported satisfactory pain control with oral pain medications by postoperative day 1. Patient showed satisfactory progress with physical therapy. Patient moved steadily through the program and had no difficulty meeting the goals by postoperative day 1. Given patient's otherwise satisfactory course and having met physical therapy goals, plan is to discharge patient home on postoperative day 1. Discharge condition/disposition: Patient will be discharged home in stable condition. Discharge medications: Instructions are given on resumption of patient's normal daily medications per primary care recommendation, in addition patient will be prescribed [place]; aspirin 325 mg daily x 4 weeks. Orthopedic Discharge Instructions: 1. Wound care and infection precautions, keep incision dry and covered while showering, no lotions, creams, moisturizers. No soaking, pools, hot tubs. Do not scrub over incision. 2. Non-weight bearing right upper extremity until follow-up. 3. Ice when necessary. Do not exceed 20 minutes per hour with ice pack. 4. Utilize sling to right upper extremity until seen at first follow up appointment. 5. Pain meds and anticoagulants per prescription. 6. Pain medication has potential to cause constipation. Increase oral fluid and fiber intake. Contact primary care provider if you have not had a bowel movement within 48 hours after discharge. 7. No anti-inflammatory medication until discussed at first post operative visit, this including Motrin, Aleve, Mobic, Diclofenac. 8. Follow up in office at 2 weeks postop with Marcello Walls PA-C / Franki Charles PA-C 9. Follow up with your primary care doctor 7-10 days after discharge. 10. Contact [facility] with any questions, . Keep incision clean, dry, intact. While showering, cover incision/steri-strips with Saran wrap. Keep steri-strips on until follow-up appointment in office in 2 weeks Assessment: Severe right rotator cuff arthropath Procedures: Reverse right total shoulder arthroplasty Patient Condition at Discharge: Good Plan - Discharge Summary Discharge Rx Participant: Yes New Discharge Prescriptions: New HYDROcodone/APAP 5-325MG [[place] 5-325] 1 tab PO Q6HR PRN #28 tab PRN Reason: Pain Aspirin 325 mg PO DAILY #30 tab No Action carvediloL [Coreg] 6.25 mg PO QAM Atorvastatin [Lipitor] 20 mg PO HS Pantoprazole [Protonix] 40 mg PO HS DULoxetine HCL [Cymbalta] 30 mg PO QAM Losartan [Cozaar] 25 mg PO QAM Magnesium Gluconate [Magonate] 500 mg PO DAILY Aspirin [Adult Low Dose Aspirin EC] 81 mg PO DAILY oxyBUTYnin chloride [Ditropan] 10 mg PO HS Discharge Medication List Aspirin [Adult Low Dose Aspirin EC] 81 mg PO DAILY 02/04/21 [History] Magnesium Gluconate [Magonate] 500 mg PO DAILY 02/04/21 [History] carvediloL [Coreg] 6.25 mg PO QAM 02/04/21 [History] Atorvastatin [Lipitor] 20 mg PO HS 07/15/22 [History] DULoxetine HCL [Cymbalta] 30 mg PO QAM 11/05/23 [History] Losartan [Cozaar] 25 mg PO QAM 11/05/23 [History] Pantoprazole [Protonix] 40 mg PO HS 11/05/23 [History] oxyBUTYnin chloride [Ditropan] 10 mg PO HS 11/05/23 [History] Aspirin 325 mg PO DAILY #30 tab 03/09/24 [Rx] HYDROcodone/APAP 5-325MG [[place] 5-325] 1 tab PO Q6HR PRN #28 tab 03/09/24 [Rx] Follow up Appointment(s)/Referral(s): Franki Charles, NELLY [[employer]] - 2 Weeks Activity/Diet/Wound Care/Special Instructions: Orthopedic Discharge Instructions: 1. Wound care and infection precautions, keep incision dry and covered while showering, no lotions, creams, moisturizers. No soaking, pools, hot tubs. Do not scrub over incision. 2. Non-weight bearing right upper extremity until follow-up. 3. Ice when necessary. Do not exceed 20 minutes per hour with ice pack. 4. Utilize sling to right upper extremity until seen at first follow up appointment. 5. Pain meds and anticoagulants per prescription. 6. Pain medication has potential to cause constipation. Increase oral fluid and fiber intake. Contact primary care provider if you have not had a bowel movement within 48 hours after discharge. 7. No anti-inflammatory medication until discussed at first post operative visit, this including Motrin, Aleve, Mobic, Diclofenac. 8. Follow up in office at 2 weeks postop with Marcello Walls PA-C / Franki Charles PA-C 9. Follow up with your primary care doctor 7-10 days after discharge. 10. Contact [facility] with any questions, . Keep incision clean, dry, intact. While showering, cover incision/steri-strips with Saran wrap. Keep steri-strips on until follow-up appointment in office in 2 weeks Discharge Disposition: HOME SELF-CARE
--- NOTE | 2024-03-09 12:39 | P.PN ---
Subjective Progress Note Date: 03/09/24 Principal diagnosis: Right shoulder rotator cuff arthropathy Patient was seen at bedside this morning lying in bed with sling present to right upper extremity in bulky dressing present over right shoulder. Patient says her pain is controlled with oral medication. She says she has urinated since surgery yesterday without issue. Patient says she is looking forward to going home today. Patient says she has had a bowel movement since surgery yesterday. Patient denies any other issues at this time. Objective - Vital Signs Vital signs: Vital Signs Temp 97.8 F 03/09/24 07:52 Pulse 97 03/09/24 07:52 Resp 17 03/09/24 07:52 BP 128/76 03/09/24 07:52 Pulse Ox 92 L 03/09/24 07:52 FiO2 Intake & Output 03/08/24 03/09/24 03/09/24 18:59 06:59 18:59 Intake Total 2049 Output Total 100 Balance 1950 Weight 88.5 kg Intake: IV 2049 Output: Estimated Blood Loss 100 Other: Voiding Method Toilet # Voids 1 1 - Exam Right shoulder: Incision is clean, dry, and intact. Sling present to right upper extremity. the bulky dressing is in good condition. There is minimal soft tissue swelling and ecchymosis surrounding the medial and lateral aspects of the incision. Calf is soft, no tenderness with palpation. Plantar flexion, dorsiflexion, EHL, FHL are intact. Sensory exam to light touch throughout the extremity is intact, dorsal pedis pulses 2+. Assessment and Plan Assessment: 1. Right shoulder rotator cuff arthropathy -Postop day 1 status post reverse right total shoulder arthroplasty Plan: 1. Right shoulder rotator cuff arthropathy -reverse right total shoulder arthroplasty performed yesterday, 03/08/2024. Patient stable at bedside this morning. Discharge home today. 2. Appreciate medical management 3. Pain management -[place] 4. DVT prophylaxis -Eliquis in hospital. Going home with aspirin 325 mg daily x 30 days 5. GI prophylaxis - [place] 6. PT/OT -nonweightbearing right upper extremity. Maintain sling to right upper extremity at all times. Okay to perform elbow and wrist range of motion exercises of right upper extremity. 7. Encourage incentive spirometer use 8. Discharge planning -home today. Time with Patient: Less than 30
--- NOTE | 2024-03-09 13:22 | P.CONS ---
History of Present Illness - Reason for Consult Consult date: 03/09/24 Medical management - History of Present Illness History of present illness; patient is 74-year-old lady with past medical history significant for atrial fibrillation, hyperlipidemia, hypertension who presented to hospital for elective reverse right total shoulder arthroplasty. Patient has been following up outpatient with orthopedic surgery for right shoulder pain for the last few years. Patient had multiple arthroscopies on her right shoulder, patient had tried all conservative measures with therapy and pain management but it has failed. Orthopedic decided to proceed with surgery. Postoperatively internal medicine team were consulted REVIEW OF SYSTEMS: CONSTITUTIONAL: No fever, no malaise, no fatigue. HEENT: No recent visual problems or hearing problems. Denied any sore throat. CARDIOVASCULAR: No chest pain, orthopnea, PND, no palpitations, no syncope. PULMONARY: No shortness of breath, no cough, no hemoptysis. GASTROINTESTINAL: No diarrhea, no nausea, no vomiting, no abdominal pain. NEUROLOGICAL: No headaches, no weakness, no numbness. HEMATOLOGICAL: Denies any bleeding or petechiae. GENITOURINARY: Denies any burning micturition, frequency, or urgency. MUSCULOSKELETAL/RHEUMATOLOGICAL: Right shoulder pain ENDOCRINE: Denies any polyuria or polydipsia. The rest of the 14-point review of systems is negative. PHYSICAL EXAMINATION: GENERAL: The patient is alert and oriented x3, not in any acute distress. Well developed, well nourished. HEENT: Pupils are round and equally reacting to light. EOMI. No scleral icterus. No conjunctival pallor. Normocephalic, atraumatic. No pharyngeal erythema. No thyromegaly. CARDIOVASCULAR: S1 and S2 present. No murmurs, rubs, or gallops. PULMONARY: Chest is clear to auscultation, no wheezing or crackles. ABDOMEN: Soft, nontender, nondistended, normoactive bowel sounds. No palpable organomegaly. MUSCULOSKELETAL: Right upper extremity sling seen, right shoulder incision seen EXTREMITIES: No cyanosis, clubbing, or pedal edema. NEUROLOGICAL: Gross neurological examination did not reveal any focal deficits. SKIN: No rashes. Assessment and plan Right shoulder osteoarthritis status post reverse right total shoulder arthroplasty Hypertension History of atrial fibrillation Hyperlipidemia Monitor vital sign Monitor CBC Continue pain management per orthopedics Continue DVT prophylaxis per orthopedics Resume home meds PT and OT consulted Labs and medication were reviewed.. Continue same treatment. Continue with symptomatic treatment. Resume home medication. Monitor labs and vitals. DVT and GI prophylaxis. Further recommendations as per clinical course of the patient Dictation was produced using [employer] dictation software. please excuse any grammatical, word or spelling errors. Past Medical History Past Medical History: Atrial Fibrillation, GERD/Reflux, Hyperlipidemia, Hypertension Additional Past Medical History / Comment(s): Hx colitis, diverticulitis. Hx A- fib with cardioversion and no problems since. Hx migraines, none in a long time. "Cholesterol back to normal." History of Any Multi-Drug Resistant Organisms: None Reported Past Surgical History: Hysterectomy, Orthopedic Surgery Additional Past Surgical History / Comment(s): Right rotator cuff repair X3, colonoscopy, cardioversion, bilateral knee arthroscopy. Past Anesthesia/Blood Transfusion Reactions: No Reported Reaction Past Psychological History: No Psychological Hx Reported Additional Psychological History / Comment(s): Pt resides with her spouse. She is independent. Smoking Status: Former smoker Past Alcohol Use History: Occasional Additional Past Alcohol Use History / Comment(s): Quit smoking 30+ years ago, smoked off and on. Past Drug Use History: None Reported - Past Family History Father Family Medical History: Cancer Additional Family Medical History / Comment(s): Bladder cancer, in his 80's. Mother Family Medical History: Cancer Additional Family Medical History / Comment(s): at age 85. Medications and Allergies Home Medications Medication Instructions Recorded Confirmed Type Aspirin [Adult Low Dose Aspirin EC] 81 mg PO DAILY 02/04/21 03/08/24 History Magnesium Gluconate [Magonate] 500 mg PO DAILY 02/04/21 03/08/24 History carvediloL [Coreg] 6.25 mg PO QAM 02/04/21 03/08/24 History Atorvastatin [Lipitor] 20 mg PO HS 07/15/22 03/08/24 History DULoxetine HCL [Cymbalta] 30 mg PO QAM 11/05/23 03/08/24 History Losartan [Cozaar] 25 mg PO QAM 11/05/23 03/08/24 History Pantoprazole [Protonix] 40 mg PO HS 11/05/23 03/08/24 History oxyBUTYnin chloride [Ditropan] 10 mg PO HS 11/05/23 03/08/24 History Aspirin 325 mg PO DAILY #30 tab 03/09/24 Rx HYDROcodone/APAP 5-325MG [[place] 1 tab PO Q6HR PRN #28 tab 03/09/24 Rx 5-325] Allergies Allergy/AdvReac Type Severity Reaction Status Date / Time amoxicillin Allergy Rash/Hives Verified 03/08/24 10:59 Penicillins Allergy Unknown Verified 03/08/24 10:59 Childhood Physical Exam Vitals: Vital Signs Temp Pulse Pulse Resp BP Pulse Ox 03/09/24 07:52 97.8 F 97 17 128/76 92 L 03/09/24 01:27 97.9 F 79 17 90/51 92 L 03/08/24 19:09 97.4 F L 71 15 105/65 96 03/08/24 17:14 59 L 111/75 96 03/08/24 16:59 64 115/77 96 03/08/24 16:45 59 L 115/72 96 03/08/24 16:29 69 119/81 96 03/08/24 16:13 97.6 F 63 19 111/72 95 03/08/24 15:57 59 L 16 126/64 98 03/08/24 15:42 64 16 122/67 96 03/08/24 15:27 63 16 124/67 95 03/08/24 15:12 75 16 121/63 99 03/08/24 14:57 97.0 F L 84 18 137/71 100 Intake and Output 03/08/24 03/09/24 03/09/24 22:59 06:59 14:59 Other: Voiding Method Toilet # Voids 1 1 Weight 88.5 kg
== END 2024-03-09 14:04 | disposition home or self-care (01) ==
LOC: OR 10:44 → 4SSUR 14:41 → OR 03-09 14:04
PROVIDERS: ATTEND Orthopaedic Surgery
DX: M19.011 Primary osteoarthritis, right shoulder (principal); K21.9 Gastro-esophageal reflux disease without esophagitis; I48.91 Unspecified atrial fibrillation; I10 Essential (primary) hypertension; G89.18 Other acute postprocedural pain; E78.5 Hyperlipidemia, unspecified; Z79.01 Long term (current) use of anticoagulants; Z79.82 Long term (current) use of aspirin; Z87.891 Personal history of nicotine dependence; Z88.0 Allergy status to penicillin; Z79.899 Other long term (current) drug therapy
CPT/HCPCS: 64415; 73020; 23472; C1776; J2250; J0330; J1100; J2710; J0690 ×2; J2405; J2001; J3010; J2795; J2704; J1170; J2371

== ENCOUNTER → 2024-11-09 | Outpatient (CLI) | payer MEDICARE, OTHER ==
--- NOTE | 2024-11-10 08:46 | XR ---
EXAMINATION TYPE: XR chest 2V DATE OF EXAM: 11/09/2024 5:29 PM COMPARISON: 02/27/2024 CLINICAL INDICATION: Female, 74 years old with history of R06.09, shortness of breath for a few days, recent cough, TECHNIQUE: Frontal and lateral views FINDINGS: Heart normal size. Mild hyperinflation. There is a small left and trace right pleural effusion presen t with some adjacent patchy opacity. Some biapical pleural-parenchymal scarring. Partially visualized reverse right shoulder arthroplasty. IMPRESSION: COPD with small left and trace right pleural effusions with adjacent atelectasis and/or consolidation . Possible sequela of mild CHF versus underlying pneumonia. [facility], Workstation: [id number], 11/10/2024 8:43 AM
== END | disposition home or self-care (01) ==
LOC: RADXRMAIN 17:12
PROVIDERS: ATTEND Nurse Practitioner Family
DX: J44.9 Chronic obstructive pulmonary disease, unspecified (principal); J90 Pleural effusion, not elsewhere classified
CPT/HCPCS: 71046

== ENCOUNTER → 2024-11-10 | Outpatient (CLI) | payer MEDICARE, OTHER ==
[2024-11-10 14:51] LABS: Basophils # (A) 0.05 X 10*3/uL (0.00-0.10); Basophils % (A) 1.2 %; Eosinophils # (A) 0.19 X 10*3/uL (0.04-0.35); Eosinophils % (A) 4.5 %; HCT 38.1 % (37.2-46.3); HGB 12.7 g/dL (12.0-15.0); Lymphocytes # (A) 1.28 X 10*3/uL (0.90-5.00); MCH 30.5 pg (27.0-32.0); MCHC 33.3 g/dL (32.0-37.0); MCV 91.4 FL (80.0-97.0); Mean Platelet Volume 12.1 FL (9.5-12.2); Monocytes # (A) 0.47 X 10*3/uL (0.20-1.00); NRBC Per 100 WBC 0 X 10*3/uL (0.00-0.01); Neutrophils # (A) 2.26 X 10*3/uL (1.80-7.70); Neutrophils % (A) 53.1 %; Platelet Count 168 X 10*3/uL (140-440); RBC 4.17 X 10*6/uL (4.10-5.20); RDW 14.4 % (11.5-14.5); WBC 4.26 X 10*3/uL (4.50-10.00)
[2024-11-10 14:59] LABS: ALT 51 U/L (8-44); AST 31 U/L (13-35); Albumin 3.8 g/dL (3.8-4.9); Albumin/Globulin Ratio 1.81 Ratio (1.60-3.17); Alkaline Phosphatase 134 U/L (41-126); BUN/Creat Ratio 12.38 Ratio (12.00-20.00); Blood Urea Nitrogen 9.9 mg/dL (9.0-27.0); Calcium 9.2 mg/dL (8.7-10.3); Carbon Dioxide 23.5 mmol/L (21.6-31.8); Chloride 108 mmol/L (96-109); Globulin 2.1 g/dL (1.6-3.3); Glucose 123 mg/dL (70-110); Potassium 3.9 mmol/L (3.5-5.5); Sodium 141 mmol/L (135-145); Total Bilirubin 0.7 mg/dL (0.3-1.2); Total Protein 5.9 g/dL (6.2-8.2)
[2024-11-11 10:05] LABS: Cryptosporidium Antigen Negative (Negative)
== END | disposition home or self-care (01) ==
LOC: LABWHC1 10:45
PROVIDERS: ATTEND Family Medicine
DX: R19.4 Change in bowel habit (principal); R06.09 Other forms of dyspnea
CPT/HCPCS: 36415; 80053; 85025; 85379; 87045; 87046; 87328; 87329

== ENCOUNTER → 2025-01-17 | Outpatient (CLI) | payer MEDICARE, OTHER | LOC: CPPFTMAIN 08:45 | PROVIDERS: ATTEND Family Medicine | DX: R06.09 Other forms of dyspnea (principal); Z88.0 Allergy status to penicillin; Z87.891 Personal history of nicotine dependence | CPT/HCPCS: 94060; 94726; 94729 ==